=== PATIENT | male | born 1960 | race African-American/Black ===

== ENCOUNTER 2016-12-10 10:35 | Inpatient (IN) | payer OTHER ==
[2016-12-10 11:17] VITALS: BMI 25.1
--- NOTE | 2016-12-10 12:19 | HP ---
CIWA Score - CIWA Score Nausea/Vomitin-Mild Nausea/No Vomiting Muscle Tremors: 4-Moderate,w/Arms Extend Anxiety: 4-Mod. Anxious/Guarded Agitation: 1-Slight > Activity Paroxysmal Sweats: No Perspiration Orientation: 1-Uncertain about Date Tacttile Disturbances: 0-None Auditory Disturbances: 0-None Visual Disturbances: 0-None Headache: 1-Very Mild CIWA-Ar Total Score: 12 Admission ROS BHS - HPI Chief Complaint: I tried to stop but it didn't work, I need help Allergies/Adverse Reactions: Allergies Allergy/AdvReac Type Severity Reaction Status Date / Time bologna AdvReac Intermediate Rash Uncoded 12/10/16 12:10 History of Present Illness: 56 yo gentleman first time here for detox - previous detox years ago - longest time sober 5 years. No seizures. Interested in rehab - drinking is causing him problems with work. Exam Limitations: Clinical Condition - Ebola screening Have you traveled outside of the country in the last 21 days: No Have you had contact with anyone from an Ebola affected area: No Have you been sick,other than usual withdrawal symptoms: No Do you have a fever: No - Review of Systems Constitutional: Loss of Appetite, Malaise, Changes in sleep EENT: reports: No Symptoms Reported Respiratory: reports: No Symptoms reported Cardiac: reports: No Symptoms Reported GI: reports: Poor Appetite, Indigestion : reports: Frequency Musculoskeletal: reports: Back Pain, Muscle Pain, Neck Pain Integumentary: reports: No Symptoms Reported Neuro: reports: No Symptoms reported Endocrine: reports: No Symptoms Reported Hematology: reports: No Symptoms Reported Psychiatric: reports: Judgement Intact, Mood/Affect Appropiate, Anxious Other Systems: Reviewed and Negative Patient History - Patient Medical History Hx Anemia: No Hx Asthma: No Hx Chronic Obstructive Pulmonary Disease (COPD): No Hx Cancer: No Hx Cardiac Disorders: No Hx Congestive Heart Failure: No Hx Hypertension: Yes (on meds) Hx Hypercholesterolemia: No Hx Pacemaker: No HX Cerebrovascular Accident: No Hx Seizures: No Hx Dementia: No Hx Diabetes: No Hx Gastrointestinal Disorders: No Hx Liver Disease: No Hx Genitourinary Disorders: No Hx Sexually Transmitted Disorders: No Hx Renal Disease (ESRD): No Hx Thyroid Disease: No Hx Human Immunodeficiency Virus (HIV): No Hx Hepatitis C: No Hx Depression: No Hx Suicide Attempt: No Hx Bipolar Disorder: No Hx Schizophrenia: No - Patient Surgical History Past Surgical History: No - PPD History Previous Implant?: Yes Documented Results: Positive w/o proof (treated with INH for several months ( had to stop due to elevated LFTs)) PPD to be Administered?: No - Reproductive History Patient is a Female of Child Bearing Age (11 -55 yrs old): No (male) - Smoking Cessation Smoking history: Current every day smoker Have you smoked in the past 12 months: Yes Aproximately how many cigarettes per day: 5 Initiated information on smoking cessation: Yes 'Breaking Loose' booklet given: 12/10/16 (give on floor) - Substance & Tx. History Hx Alcohol Use: Yes Hx Substance Use: Yes Substance Use Type: Alcohol, Cocaine Hx Substance Use Treatment: Yes (detox years ago) - Substances Abused Alcohol Route: Oral Frequency: 3-6 times per week Amount used: 1 pint E&J olivier, 32 oz beer Age of first use: 18 Date of Last Use: 12/10/16 Cocaine Route: Inhalation Frequency: 1-2 times per week Amount used: 1gm Age of first use: 21 Date of Last Use: 12/09/16 Family Disease History - Family Disease History Family Disease History: Heart Disease: Mother (alive - ), Brother (3 - living - HTN-), CA: Mother, Other: Father (alive - on dialysis,hx etoh), Mother, Brother , Sister (2 - living), Son (3 - living healthy), Daughter (4 - living, healthy) Admission Physical Exam BHS - Vital Signs Vital Signs: Vital Signs - 24 hr 12/10/16 11:12 Temperature 98 F Pulse Rate 76 Respiratory 20 Rate Blood Pressure 120/74 - Physical General Appearance: Yes: Nourished, Appropriately Dressed, Moderate Distress, Anxious HEENTM: Yes: Hearing grossly Normal, Normal ENT Inspection, Normocephalic Respiratory: Yes: Normal Breath Sounds, No Respiratory Distress Neck: Yes: No masses,lesions,Nodules, Trachea in good position Breast: Yes: Breast Exam Deferred Cardiology: Yes: Regular Rhythm, Regular Rate Abdominal: Yes: Soft Genitourinary: Yes: Frequency Back: Yes: Normal Inspection Musculoskeletal: Yes: full range of Motion, Gait Steady Extremities: Yes: Normal Inspection, Non-Tender Neurological: Yes: Fully Oriented, Normal Mood/Affect, Normal Response Integumentary: Yes: Normal Color, Warm Lymphatic: Yes: Within Normal Limits - Diagnostic (1) Alcohol dependence with uncomplicated withdrawal Current Visit: Yes Status: Chronic (2) Cocaine abuse Current Visit: Yes Status: Acute (3) Chronic neck and back pain Current Visit: Yes Status: Chronic (4) HTN (hypertension) Current Visit: Yes Status: Chronic Qualifiers: Hypertension type: essential hypertension Qualified Code(s): I10 - Essential (primary) hypertension; I10 - Essential (primary) hypertension; I10 - Essential (primary) hypertension (5) Nicotine dependence Current Visit: Yes Status: Chronic Qualifiers: Nicotine product type: cigarettes Substance use status: uncomplicated Qualified Code(s): F17.210 - Nicotine dependence, cigarettes, uncomplicated; F17.210 - Nicotine dependence, cigarettes, uncomplicated (6) PPD positive, treated Current Visit: Yes Status: Chronic Cleared for Admission [facility] - Detox or Rehab [facility] Level of Care: Medically Managed Detox Regimen/Protocol: Librium S Breath Alcohol Content Breath Alcohol Content: 0 Urine Drug Screen - Results Drug Screen Negative: No Urine Drug Screen Results: CHARLES-Cocaine
[2016-12-10] MEDS ORDERED: MAGNESIUM HYDROX 2400MG/30ML ORAL SUSPENSION 30 ML CUP PO PRN (12:26)
[2016-12-10] MEDS ORDERED: MAG HYDROX/AL HYDROX/SIMETH 30 ML UNIT-DOSE CUP PO PRN (12:26)
[2016-12-10] MEDS ORDERED: LOPERAMIDE HCL 2 MG CAPSULE PO PRN (12:26)
[2016-12-10] MEDS ORDERED: chlordiazePOXIDE HCL 25 MG CAPSULE PO ONE (12:26)
[2016-12-10] MEDS ORDERED: hydrOXYzine PAMOATE 25 MG CAPSULE (FP) PO PRN (12:26)
[2016-12-10] MEDS ORDERED: guaiFENesin/D-METHORPHAN HB 10 ML UNIT-DOSE CUPS PO PRN (12:26)
[2016-12-10] MEDS ORDERED: MENTHOL/PHENOL 1 EACH UD MM PRN (12:26)
[2016-12-10] MEDS ORDERED: MAGNESIUM CITRATE 300 ML BOTTLE PO PRN (12:26)
[2016-12-10] MEDS ORDERED: ACETAMINOPHEN 325 MG TABLET (FP) PO PRN (12:26)
[2016-12-10] MEDS ORDERED: chlordiazePOXIDE HCL 25 MG CAPSULE PO PRN (12:26)
[2016-12-10] MEDS ORDERED: P-EPHED 60MG/TRIPROLIDI 2.5MG TABLET PO PRN (12:26)
[2016-12-10 17:08] LABS: URINE APPEARANCE CLEAR; URINE BILIRUBIN NEGATIVE (NEGATIVE); URINE BLOOD NEGATIVE (NEGATIVE); URINE COLOR STRAW; URINE GLUCOSE (UA) NEGATIVE (NEGATIVE); URINE KETONE NEGATIVE (NEGATIVE); URINE NITRITE NEGATIVE (NEGATIVE); URINE PROTEIN NEGATIVE (NEGATIVE); URINE UROBILINOGEN NEGATIVE mg/dL (0.2-1.0)
[2016-12-10] MEDS: chlordiazePOXIDE HCL 25 MG CAPSULE PO SCH ×2 (17:15→22:10)
[2016-12-10] MEDS: METHYL SALICYLATE/MENTHOL OINT 30 GM TUBE TP SCH ×2 (17:18→22:09)
[2016-12-10 22:02] LABS: URINE LEUK ESTERASE Negative (NEGATIVE)
[2016-12-10] MEDS: THIAMINE HCL 100 MG TABLET (FP) PO SCH (22:10)
[2016-12-11] MEDS: chlordiazePOXIDE HCL 25 MG CAPSULE PO SCH ×4 (05:18→22:07)
--- NOTE | 2016-12-11 08:39 | CONSULT ---
[facility] Psychiatric Consult - Data Date of interview: 12/11/16 Admission source: [facility] Identifying data: Mr Mcdaniel is a 56 years old single male, father of 6 children, unemployed with no source of income, domiciled Substance Abuse History: Reports history of alcohol, cocaine and marijuana use. Refer to addiction's counselor's note for further information Medical History: Significant for HTN, prophylactic treatment for TB with INH. Smokes 5 cigarettes daily Psychiatric History: Denies history of psychiatric treatment. However, reports that he requests to see a psychiatric because he has to cosume alcohol in order to sleep well Physical/Sexual Abuse/Trauma History: Denies history of verbal, physical or sexual as well as DV relationship Additional Comment: Reports history of multiple misdemeanor arrests. claims that he had one felony that was reduced to a misdemeanor after he completed a [facility] program Mental Status Exam - Mental Status Exam Alert and Oriented to: Time, Place, Person Cognitive Function: Fair Patient Appearance: Well Groomed Mood: Hopeful, Euthymic Patient Behavior: Cooperative Speech Pattern: Clear Voice Loudness: Normal Thought Process: Intact, Goal Oriented Thought Disorder: Not Present Hallucinations: Denies Suicidal Ideation: Denies Homicidal Ideation: Denies Insight/Judgement: Poor Sleep: Poorly Appetite: Good Muscle strength/Tone: Normal Gait/Station: Normal Psychiatric Findings - Problem List ([place] 1, 2,3) (1) Substance-induced sleep disorder Current Visit: Yes Status: Acute (2) Alcohol dependence with uncomplicated withdrawal Current Visit: Yes Status: Acute (3) Cocaine dependence Current Visit: Yes Status: Acute (4) Nicotine dependence Current Visit: Yes Status: Chronic Qualifiers: Nicotine product type: cigarettes Substance use status: uncomplicated Qualified Code(s): F17.210 - Nicotine dependence, cigarettes, uncomplicated; F17.210 - Nicotine dependence, cigarettes, uncomplicated (5) Chronic neck and back pain Current Visit: Yes Status: Chronic (6) HTN (hypertension) Current Visit: Yes Status: Chronic Qualifiers: Hypertension type: essential hypertension Qualified Code(s): I10 - Essential (primary) hypertension; I10 - Essential (primary) hypertension; I10 - Essential (primary) hypertension (7) PPD positive, treated Current Visit: Yes Status: Chronic - Initial Treatment Plan Initial Treatment Plan: 1) Start Ambien 10 mg po HS prn for insomnia. Benefits vs Risks of medication discussed with patient and he agreed to try it. 2) Continue inpatient detoxification
[2016-12-11 10:00] LABS: MCH 26.3 pg (25.7-33.7); MCHC 32.1 g/dl (32.0-35.9); MEAN PLT VOLUME 8.4 fl (7.5-11.1); PLATELET COUNT 242 K/MM3 (134-434); WHITE BLOOD COUNT 5.9 K/mm3 (4.0-10.0)
[2016-12-11] MEDS ORDERED: PATIENT'S OWN MEDICATION (NON-FORMULARY) (Lisinopril/Hydrochlorothiazide [Lisinopril-Hctz PO SCH (10:00)
[2016-12-11 10:04] LABS: ALBUMIN 3.5 g/dl (3.4-5.0); ALK PHOS 68 U/L (45-117); ANION GAP 7 (8-16); BILIRUBIN,TOTAL 0.6 mg/dL (0.2-1.0); CALCIUM 8.8 mg/dL (8.5-10.1); CO2 26 mmol/L (21-32); CREATININE 0.8 mg/dL (0.7-1.3); GLUCOSE,RANDOM 101 mg/dL (74-106); SGOT/AST 22 U/L (15-37); SGPT/ALT 45 U/L (12-78); TOT PROT 6.3 g/dl (6.4-8.2)
[2016-12-11] MEDS: PRENATAL VITAMINS W/ FOLIC ACID TABLET (FP) PO SCH (10:12)
[2016-12-11] MEDS: LISINOPRIL 20 MG TABLET (FP) PO SCH (10:12)
[2016-12-11] MEDS: HYDROCHLOROTHIAZIDE 25 MG TABLET (FP) PO SCH (10:12)
[2016-12-11] MEDS: amLODIPine BESYLATE 5 MG TABLET (FP) PO SCH (10:12)
[2016-12-11] MEDS: METHYL SALICYLATE/MENTHOL OINT 30 GM TUBE TP SCH ×2 (10:12→22:07)
[2016-12-11] MEDS: ASPIRIN 81 MG CHEWABLE TABLETS PO SCH (10:12)
[2016-12-11] MEDS ORDERED: ZOLPIDEM TARTRATE 5 MG TABLET PO PRN (10:34)
--- NOTE | 2016-12-11 11:02 | EKG ---
Test Reason : Blood Pressure : / mmHG Vent. Rate : 068 BPM Atrial Rate : 068 BPM P-R Int : 136 ms QRS Dur : 088 ms QT Int : 404 ms P-R-T Axes : 048 -38 -08 degrees QTc Int : 429 ms NORMAL SINUS RHYTHM LEFT AXIS DEVIATION MODERATE VOLTAGE CRITERIA FOR LVH, MAY BE NORMAL VARIANT ABNORMAL ECG NO PREVIOUS ECGS AVAILABLE Confirmed by JT KIM, BETH ([id number]) on 12/11/2016 11:02:31 AM Referred By: Confirmed By:BETH WTAERS MD
--- NOTE | 2016-12-11 16:41 | PN ---
S CIWA - CIWA Score Nausea/Vomitin Muscle Tremors: 3 Anxiety: 3 Agitation: 3 Paroxysmal Sweats: 2 Orientation: 0-Oriented Tacttile Disturbances: 0-None Auditory Disturbances: 0-None Visual Disturbances: 0-None Headache: 2-Mild CIWA-Ar Total Score: 15 S Progress Note (SOAP) Subjective: Sweating, anxious, interrupted sleep, nausea Objective: 12/11/16 16:39 Laboratory Tests 12/10/16 12/11/16 12/11/16 15:30 07:30 07:30 WBC 5.9 RBC 4.59 Hgb 12.1 Hct 37.6 MCV 82.0 MCH 26.3 MCHC 32.1 RDW 14.0 Plt Count 242 MPV 8.4 Sodium 142 Potassium 3.8 Chloride 109 H Carbon Dioxide 26 Anion Gap 7 L BUN 13 Creatinine 0.8 Creat Clearance w eGFR > 60 Random Glucose 101 Calcium 8.8 Total Bilirubin 0.6 AST 22 ALT 45 Alkaline Phosphatase 68 Total Protein 6.3 L Albumin 3.5 Urine Color Straw Urine Appearance Clear Urine pH 5.0 Ur Specific [place] 1.015 Urine Protein Negative Urine Glucose (UA) Negative Urine Ketones Negative Urine Blood Negative Urine Nitrite Negative Urine Bilirubin Negative Urine Urobilinogen Negative Ur Leukocyte Esterase Negative RPR Titer Last Vital Signs Temp Pulse Resp BP Pulse Ox 97.0 F L 84 18 128/74 12/11/16 13:16 12/11/16 13:16 12/11/16 13:16 12/11/16 13:16 Laboratory Tests 12/10/16 12/11/16 12/11/16 15:30 07:30 07:30 WBC 5.9 RBC 4.59 Hgb 12.1 Hct 37.6 MCV 82.0 MCH 26.3 MCHC 32.1 RDW 14.0 Plt Count 242 MPV 8.4 Sodium 142 Potassium 3.8 Chloride 109 H Carbon Dioxide 26 Anion Gap 7 L BUN 13 Creatinine 0.8 Creat Clearance w eGFR > 60 Random Glucose 101 Calcium 8.8 Total Bilirubin 0.6 AST 22 ALT 45 Alkaline Phosphatase 68 Total Protein 6.3 L Albumin 3.5 Urine Color Straw Urine Appearance Clear Urine pH 5.0 Ur Specific [place] 1.015 Urine Protein Negative Urine Glucose (UA) Negative Urine Ketones Negative Urine Blood Negative Urine Nitrite Negative Urine Bilirubin Negative Urine Urobilinogen Negative Ur Leukocyte Esterase Negative RPR Titer 12/11/16 07:30 WBC RBC Hgb Hct MCV MCH MCHC RDW Plt Count MPV Sodium Potassium Chloride Carbon Dioxide Anion Gap BUN Creatinine Creat Clearance w eGFR Random Glucose Calcium Total Bilirubin AST ALT Alkaline Phosphatase Total Protein Albumin Urine Color Urine Appearance Urine pH Ur Specific [place] Urine Protein Urine Glucose (UA) Urine Ketones Urine Blood Urine Nitrite Urine Bilirubin Urine Urobilinogen Ur Leukocyte Esterase RPR Titer Nonreactive Labs noted Assessment: 12/11/16 16:40 Withdrawal symptoms Plan: Continue detox
[2016-12-11] MEDS: diphenhydrAMINE HCL 50 MG CAPSULE PO PRN (22:06)
[2016-12-11] MEDS: THIAMINE HCL 100 MG TABLET (FP) PO SCH (22:06)
[2016-12-12] MEDS: chlordiazePOXIDE HCL 25 MG CAPSULE PO SCH ×2 (05:58→10:06)
[2016-12-12] MEDS: ASPIRIN 81 MG CHEWABLE TABLETS PO SCH (10:06)
[2016-12-12] MEDS: amLODIPine BESYLATE 5 MG TABLET (FP) PO SCH (10:06)
[2016-12-12] MEDS: PRENATAL VITAMINS W/ FOLIC ACID TABLET (FP) PO SCH (10:06)
[2016-12-12] MEDS: LISINOPRIL 20 MG TABLET (FP) PO SCH (10:06)
[2016-12-12] MEDS: HYDROCHLOROTHIAZIDE 25 MG TABLET (FP) PO SCH (10:06)
[2016-12-12] MEDS: METHYL SALICYLATE/MENTHOL OINT 30 GM TUBE TP SCH ×2 (10:07→22:22)
--- NOTE | 2016-12-12 12:09 | PN ---
[facility] CIWA - CIWA Score Nausea/Vomitin-No Nausea/No Vomiting Muscle Tremors: 2 Anxiety: 5 Agitation: 4-Moderately Restless Paroxysmal Sweats: 3 Orientation: 0-Oriented Tacttile Disturbances: 2-Mild Itch/Numbness/Burn Auditory Disturbances: 0-None Visual Disturbances: 0-None Headache: 0-None Present CIWA-Ar Total Score: 16 BHS Progress Note (SOAP) Subjective: Sweating, Anxious, Interrupted sleep. Objective: PT. A & O X 3, OBSERVED AMBULATING ON UNIT. NO ACUTE DISTRESS. 12/12/16 12:07 Vital Signs Temperature 97.5 F L 12/12/16 09:39 Pulse Rate 88 12/12/16 09:39 Respiratory Rate 20 12/12/16 09:39 Blood Pressure 120/83 12/12/16 09:39 O2 Sat by Pulse Oximetry (%) Laboratory Tests 12/10/16 12/11/16 12/11/16 15:30 07:30 07:30 WBC 5.9 RBC 4.59 Hgb 12.1 Hct 37.6 MCV 82.0 MCH 26.3 MCHC 32.1 RDW 14.0 Plt Count 242 MPV 8.4 Sodium 142 Potassium 3.8 Chloride 109 H Carbon Dioxide 26 Anion Gap 7 L BUN 13 Creatinine 0.8 Creat Clearance w eGFR > 60 Random Glucose 101 Calcium 8.8 Total Bilirubin 0.6 AST 22 ALT 45 Alkaline Phosphatase 68 Total Protein 6.3 L Albumin 3.5 Urine Color Straw Urine Appearance Clear Urine pH 5.0 Ur Specific [place] 1.015 Urine Protein Negative Urine Glucose (UA) Negative Urine Ketones Negative Urine Blood Negative Urine Nitrite Negative Urine Bilirubin Negative Urine Urobilinogen Negative Ur Leukocyte Esterase Negative RPR Titer 12/11/16 07:30 WBC RBC Hgb Hct MCV MCH MCHC RDW Plt Count MPV Sodium Potassium Chloride Carbon Dioxide Anion Gap BUN Creatinine Creat Clearance w eGFR Random Glucose Calcium Total Bilirubin AST ALT Alkaline Phosphatase Total Protein Albumin Urine Color Urine Appearance Urine pH Ur Specific [place] Urine Protein Urine Glucose (UA) Urine Ketones Urine Blood Urine Nitrite Urine Bilirubin Urine Urobilinogen Ur Leukocyte Esterase RPR Titer Nonreactive LABS NOTED. Assessment: 12/12/16 12:08 WITHDRAWAL SYMPTOMS. Plan: CONTINUE DETOX.
[2016-12-12] MEDS: chlordiazePOXIDE 5 MG CAPSULE PO SCH ×2 (17:30→22:20)
[2016-12-12] MEDS: THIAMINE HCL 100 MG TABLET (FP) PO SCH (22:20)
[2016-12-12] MEDS: diphenhydrAMINE HCL 50 MG CAPSULE PO PRN (22:20)
[2016-12-13] MEDS: chlordiazePOXIDE 5 MG CAPSULE PO SCH ×2 (06:20→10:14)
[2016-12-13 09:40] VITALS: BP 117/84; PULSE 108; TEMP 96.2
[2016-12-13] MEDS: LISINOPRIL 20 MG TABLET (FP) PO SCH (10:14)
[2016-12-13] MEDS: PRENATAL VITAMINS W/ FOLIC ACID TABLET (FP) PO SCH (10:14)
[2016-12-13] MEDS: amLODIPine BESYLATE 5 MG TABLET (FP) PO SCH (10:14)
[2016-12-13] MEDS: ASPIRIN 81 MG CHEWABLE TABLETS PO SCH (10:14)
[2016-12-13] MEDS: METHYL SALICYLATE/MENTHOL OINT 30 GM TUBE TP SCH (10:14)
[2016-12-13] MEDS: HYDROCHLOROTHIAZIDE 25 MG TABLET (FP) PO SCH (10:15)
--- NOTE | 2016-12-13 16:15 | DS ---
[facility] Detox Discharge Summary Admission Date: 12/10/16 Discharge Date: 12/13/16 - History Present History: Alcohol Dependence, Cocaine Dependence Additional Comments: PATIENT REQUESTING TO GO TO [facility] FOR AFTERCARE. PATIENT WAS DISCHARGED FROM DETOX UNIT IN STABLE MEDICAL CONDITION. Pertinent Past History: HTN, Nicotine Dependence, History of Positive PPD (Treated), Chronic Neck and Back Pain. - Physical Exam Results Vital Signs: Vital Signs Temperature 96.2 F L 12/13/16 09:40 Pulse Rate 108 H 12/13/16 09:40 Respiratory Rate 18 12/13/16 09:40 Blood Pressure 117/84 12/13/16 09:40 O2 Sat by Pulse Oximetry (%) Pertinent Admission Physical Exam Findings: WITHDRAWAL SYMPTOMS. Laboratory Tests 12/10/16 12/11/16 12/11/16 15:30 07:30 07:30 WBC 5.9 RBC 4.59 Hgb 12.1 Hct 37.6 MCV 82.0 MCH 26.3 MCHC 32.1 RDW 14.0 Plt Count 242 MPV 8.4 Sodium 142 Potassium 3.8 Chloride 109 H Carbon Dioxide 26 Anion Gap 7 L BUN 13 Creatinine 0.8 Creat Clearance w eGFR > 60 Random Glucose 101 Calcium 8.8 Total Bilirubin 0.6 AST 22 ALT 45 Alkaline Phosphatase 68 Total Protein 6.3 L Albumin 3.5 Urine Color Straw Urine Appearance Clear Urine pH 5.0 Ur Specific [place] 1.015 Urine Protein Negative Urine Glucose (UA) Negative Urine Ketones Negative Urine Blood Negative Urine Nitrite Negative Urine Bilirubin Negative Urine Urobilinogen Negative Ur Leukocyte Esterase Negative RPR Titer 12/11/16 07:30 WBC RBC Hgb Hct MCV MCH MCHC RDW Plt Count MPV Sodium Potassium Chloride Carbon Dioxide Anion Gap BUN Creatinine Creat Clearance w eGFR Random Glucose Calcium Total Bilirubin AST ALT Alkaline Phosphatase Total Protein Albumin Urine Color Urine Appearance Urine pH Ur Specific [place] Urine Protein Urine Glucose (UA) Urine Ketones Urine Blood Urine Nitrite Urine Bilirubin Urine Urobilinogen Ur Leukocyte Esterase RPR Titer Nonreactive LABS NOTED. - Treatment Hospital Course: Detox Protocol Followed, Detoxed Safely, Responded well, Discharged Condition Good, Rehab Referral Accepted Patient has Accepted a Rehab Referral to: [facility]. - Medication Discharge Medications: Ambulatory Orders Amlodipine Besylate [Norvasc -] 5 mg PO DAILY 12/10/16 Aspirin [ASA -] 81 mg PO DAILY 12/10/16 Lisinopril/Hydrochlorothiazide [Lisinopril-Hctz 20-25 mg Tab] 1 each PO DAILY - Diagnosis (1) Alcohol dependence with uncomplicated withdrawal Current Visit: Yes Status: Acute (2) Cocaine dependence Current Visit: Yes Status: Acute Qualifiers: Substance use status: uncomplicated Qualified Code(s): F14.20 - Cocaine dependence, uncomplicated; F14.20 - Cocaine dependence, uncomplicated; F14.20 - Cocaine dependence, uncomplicated (3) Substance-induced sleep disorder Current Visit: Yes Status: Acute (4) Chronic neck and back pain Current Visit: Yes Status: Chronic (5) HTN (hypertension) Current Visit: Yes Status: Chronic Qualifiers: Hypertension type: essential hypertension Qualified Code(s): I10 - Essential (primary) hypertension; I10 - Essential (primary) hypertension; I10 - Essential (primary) hypertension (6) Nicotine dependence Current Visit: Yes Status: Chronic Qualifiers: Nicotine product type: cigarettes Substance use status: uncomplicated Qualified Code(s): F17.210 - Nicotine dependence, cigarettes, uncomplicated; F17.210 - Nicotine dependence, cigarettes, uncomplicated (7) PPD positive, treated Current Visit: Yes Status: Chronic (8) Cocaine abuse Current Visit: Yes Status: Acute - AMA Did Patient Leave Against Medical Advice: No
[2016-12-13] MEDS ORDERED: chlordiazePOXIDE HCL 10 MG CAPSULE PO SCH (17:00)
== END 2016-12-13 17:19 | disposition left against medical advice (07) | DRG 770 ==
LOC: YASAS 10:35 → Y3N 13:58
PROVIDERS: ADMIT Internal Medicine; ATTEND Internal Medicine
PROC: HZ2ZZZZ Detoxification Services for Substance Abuse Treatment (ICD-10-PCS; principal; 2016-12-10)
DX: F10.230 Alcohol dependence with withdrawal, uncomplicated (principal); F14.20 Cocaine dependence, uncomplicated; F17.210 Nicotine dependence, cigarettes, uncomplicated; F19.282 Other psychoactive substance dependence with psychoactive substance-induced sleep disorder; I10 Essential (primary) hypertension; M54.5 Low back pain; M54.2 Cervicalgia; G89.29 Other chronic pain; R76.11 Nonspecific reaction to tuberculin skin test without active tuberculosis; Z86.11 Personal history of tuberculosis; Z91.018 Allergy to other foods
CPT/HCPCS: 36415; 71020-TC; 80053; 81003; 85027; 86593; 93005; 93010

== ENCOUNTER 2017-03-10 11:36 | Inpatient (IN) | payer OTHER ==
[2017-03-10 16:00] VITALS: BMI 25.1
--- NOTE | 2017-03-10 19:33 | HP ---
CIWA Score - CIWA Score Nausea/Vomitin Muscle Tremors: 3 Anxiety: 4-Mod. Anxious/Guarded Agitation: 4-Moderately Restless Paroxysmal Sweats: 2 Orientation: 0-Oriented Tacttile Disturbances: 0-None Auditory Disturbances: 0-None Visual Disturbances: 0-None Headache: 0-None Present CIWA-Ar Total Score: 16 Admission ROS BHS - HPI Chief Complaint: Alcohol withdrawal symptoms Allergies/Adverse Reactions: Allergies Allergy/AdvReac Type Severity Reaction Status Date / Time No Known Drug Allergies Allergy Verified 03/10/17 20:09 bologna Allergy Intermediate Vomiting Uncoded 03/10/17 18:15 Exam Limitations: No Limitations - Ebola screening Have you traveled outside of the country in the last 21 days: No Have you had contact with anyone from an Ebola affected area: No Have you been sick,other than usual withdrawal symptoms: No Do you have a fever: No - Review of Systems Constitutional: Chills, Night Sweats, Changes in sleep EENT: reports: Blurred Vision, Nose Congestion Respiratory: reports: No Symptoms reported Cardiac: reports: No Symptoms Reported GI: reports: Nausea, Poor Appetite, Poor Fluid Intake, Abdominal cramping : reports: No Symptoms Reported Musculoskeletal: reports: Back Pain, Muscle Pain, Muscle Weakness, Neck Pain Integumentary: reports: Flushing Neuro: reports: Headache, Tingling, Tremors Endocrine: reports: No Symptoms Reported Hematology: reports: No Symptoms Reported Psychiatric: reports: Orientated x3, Agitated, Anxious Other Systems: Reviewed and Negative Patient History - Patient Medical History Hx Anemia: No Hx Asthma: No Hx Chronic Obstructive Pulmonary Disease (COPD): No Hx Cancer: No Hx Cardiac Disorders: No Hx Congestive Heart Failure: No Hx Hypertension: Yes (on meds) Hx Hypercholesterolemia: No Hx Pacemaker: No HX Cerebrovascular Accident: No Hx Seizures: No Hx Dementia: No Hx Diabetes: No Hx Gastrointestinal Disorders: No Hx Liver Disease: No Hx Genitourinary Disorders: No Hx Sexually Transmitted Disorders: No Hx Renal Disease (ESRD): No Hx Thyroid Disease: No Hx Human Immunodeficiency Virus (HIV): No Hx Hepatitis C: No Hx Depression: No Hx Suicide Attempt: No Hx Bipolar Disorder: No Hx Schizophrenia: No - Patient Surgical History Past Surgical History: No - PPD History Previous Implant?: Yes (PPD POSITIVE) Documented Results: Positive w/proof PPD to be Administered?: No - Reproductive History Patient is a Female of Child Bearing Age (11 -55 yrs old): No (MALE) - Smoking Cessation Smoking history: Current every day smoker Have you smoked in the past 12 months: Yes Aproximately how many cigarettes per day: 5 Hx Chewing Tobacco Use: No Initiated information on smoking cessation: Yes 'Breaking Loose' booklet given: 03/10/17 - Substance & Tx. History Hx Alcohol Use: Yes Hx Substance Use: Yes Substance Use Type: Cocaine Hx Substance Use Treatment: Yes ([facility]) - Substances Abused Alcohol Route: Oral Frequency: 3-6 times per week Amount used: liquor- 1 pint, beer- 2 six packs Age of first use: 30 Date of Last Use: 03/09/17 Cocaine Route: Smoking Frequency: Daily Amount used: 2 bags Age of first use: 30 Date of Last Use: 03/09/17 Family Disease History - Family Disease History Family Disease History: Heart Disease: Mother (alive - ), Brother (3 - living - HTN-), CA: Mother, Other: Father (alive - on dialysis,hx etoh), Mother, Brother , Sister (2 - living), Son (3 - living healthy), Daughter (4 - living, healthy) Admission Physical Exam BHS - Vital Signs Vital Signs: Vital Signs - 24 hr 03/10/17 15:58 Temperature 97.8 F Pulse Rate 72 Respiratory 20 Rate Blood Pressure 124/81 - Physical General Appearance: Yes: Moderate Distress, Irritable, Sweating, Anxious HEENTM: Yes: EOMI, Normal ENT Inspection, RUEL Respiratory: Yes: Lungs Clear, Normal Breath Sounds, No Respiratory Distress Neck: Yes: Supple Breast: Yes: Breast Exam Deferred Cardiology: Yes: Regular Rhythm, Regular Rate, S1, S2 Abdominal: Yes: Soft, Pulsatile Mass Genitourinary: Yes: Within Normal Limits Musculoskeletal: Yes: Muscle Pain, Muscle weakness Extremities: Yes: Tremors Neurological: Yes: Within Normal Limits, Alert, Normal Mood/Affect Integumentary: Yes: Dry Lymphatic: Yes: Within Normal Limits - Diagnostic (1) Alcohol dependence with uncomplicated withdrawal Current Visit: Yes Status: Chronic (2) Cocaine dependence Current Visit: Yes Status: Chronic Qualifiers: Substance use status: uncomplicated Qualified Code(s): F14.20 - Cocaine dependence, uncomplicated (3) Chronic neck and back pain Current Visit: Yes Status: Chronic (4) HTN (hypertension) Current Visit: Yes Status: Chronic Qualifiers: Hypertension type: essential hypertension Qualified Code(s): I10 - Essential (primary) hypertension (5) Nicotine dependence Current Visit: Yes Status: Chronic Qualifiers: Nicotine product type: cigarettes Substance use status: uncomplicated Qualified Code(s): F17.210 - Nicotine dependence, cigarettes, uncomplicated (6) PPD positive, treated Current Visit: Yes Status: Chronic BHS Breath Alcohol Content Breath Alcohol Content: 0 Urine Drug Screen - Results Drug Screen Negative: No Urine Drug Screen Results: CHARLES-Cocaine
[2017-03-10] MEDS ORDERED: chlordiazePOXIDE HCL 25 MG CAPSULE PO PRN (19:59)
[2017-03-10] MEDS ORDERED: P-EPHED 60MG/TRIPROLIDI 2.5MG TABLET PO PRN (19:59)
[2017-03-10] MEDS ORDERED: LOPERAMIDE HCL 2 MG CAPSULE PO PRN (19:59)
[2017-03-10] MEDS ORDERED: MENTHOL/PHENOL 1 EACH UD MM PRN (19:59)
[2017-03-10] MEDS ORDERED: IBUPROFEN 400 MG TABLET (FP) PO PRN (19:59)
[2017-03-10] MEDS ORDERED: MAGNESIUM HYDROX 2400MG/30ML ORAL SUSPENSION 30 ML CUP PO PRN (19:59)
[2017-03-10] MEDS ORDERED: MAG HYDROX/AL HYDROX/SIMETH 30 ML UNIT-DOSE CUP PO PRN (19:59)
[2017-03-10] MEDS ORDERED: guaiFENesin/D-METHORPHAN HB 10 ML UNIT-DOSE CUPS PO PRN (19:59)
[2017-03-10] MEDS ORDERED: NICOTINE POLACRILEX 2 MG GUM BUC PRN (19:59)
[2017-03-10] MEDS ORDERED: MAGNESIUM CITRATE 300 ML BOTTLE PO PRN (19:59)
[2017-03-10] MEDS ORDERED: ACETAMINOPHEN 325 MG TABLET (FP) PO PRN (19:59)
[2017-03-10] MEDS: THIAMINE HCL 100 MG TABLET (FP) PO SCH (21:18)
[2017-03-10] MEDS: chlordiazePOXIDE HCL 25 MG CAPSULE PO SCH (22:40)
[2017-03-10 23:42] LABS: URINE APPEARANCE CLEAR; URINE BILIRUBIN NEGATIVE (NEGATIVE); URINE BLOOD NEGATIVE (NEGATIVE); URINE COLOR STRAW; URINE GLUCOSE (UA) NEGATIVE (NEGATIVE); URINE KETONE NEGATIVE (NEGATIVE); URINE LEUK ESTERASE NEGATIVE (NEGATIVE); URINE NITRITE NEGATIVE (NEGATIVE); URINE PROTEIN NEGATIVE (NEGATIVE); URINE UROBILINOGEN NEGATIVE mg/dL (0.2-1.0)
[2017-03-11] MEDS: chlordiazePOXIDE HCL 25 MG CAPSULE PO SCH ×4 (06:06→22:51)
[2017-03-11] MEDS ORDERED: PATIENT'S OWN MEDICATION (NON-FORMULARY) (Lisinopril/Hydrochlorothiazide [Lisinopril-Hctz PO SCH (10:00)
[2017-03-11] MEDS: PRENATAL VITAMINS W/ FOLIC ACID TABLET (FP) PO SCH (10:19)
[2017-03-11] MEDS: LISINOPRIL 20 MG TABLET (FP) PO SCH (10:19)
[2017-03-11] MEDS: ASPIRIN 81 MG CHEWABLE TABLETS PO SCH (10:19)
[2017-03-11] MEDS: amLODIPine BESYLATE 5 MG TABLET (FP) PO SCH (10:19)
[2017-03-11] MEDS: HYDROCHLOROTHIAZIDE 25 MG TABLET (FP) PO SCH (10:19)
[2017-03-11] MEDS: NICOTINE 14 MG/24 HOURS TOPICAL PATCH TD SCH (10:20)
[2017-03-11 12:20] LABS: HEMATOCRIT 42.5 % (35.4-49); HEMOGLOBIN 13.5 GM/dL (11.7-16.9); MCHC 31.7 g/dl (32.0-35.9); MEAN PLT VOLUME 8.8 fl (7.5-11.1); PLATELET COUNT 275 K/MM3 (134-434); RBC 5.18 M/mm3 (4.00-5.60); WHITE BLOOD COUNT 7.4 K/mm3 (4.0-10.0)
[2017-03-11 12:26] LABS: ANION GAP 6 (8-16); BILIRUBIN,TOTAL 0.5 mg/dL (0.2-1.0); BLOOD UREA NITROGEN 16 mg/dL (7-18); CALCIUM 8.9 mg/dL (8.5-10.1); CHLORIDE 107 mmol/L (98-107); CO2 28 mmol/L (21-32); GLUCOSE,RANDOM 121 mg/dL (74-106); SGOT/AST 15 U/L (15-37); SGPT/ALT 43 U/L (12-78); SODIUM 141 mmol/L (136-145); TOT PROT 7.5 g/dl (6.4-8.2)
[2017-03-11 12:27] LABS: ALK PHOS 76 U/L (45-117)
[2017-03-11] MEDS: METHYL SALICYLATE/MENTHOL OINT 30 GM TUBE TP SCH (14:11)
--- NOTE | 2017-03-11 15:42 | PN ---
S CIWA - CIWA Score Nausea/Vomitin-No Nausea/No Vomiting Muscle Tremors: 3 Anxiety: 4-Mod. Anxious/Guarded Agitation: 3 Paroxysmal Sweats: 3 Orientation: 0-Oriented Tacttile Disturbances: 3-Moderate Itch/Numb/Burn Auditory Disturbances: 1-Very Mild Visual Disturbances: 0-None Headache: 0-None Present CIWA-Ar Total Score: 17 BHS Progress Note (SOAP) Subjective: Sweating, Body Aches, Anxious, Interrupted Sleep. Objective: PT. A & O X 3, OBSERVED AMBULATING ON UNIT. NO ACUTE DISTRESS. 03/11/17 15:41 Vital Signs Temperature 97.3 F L 03/11/17 13:23 Pulse Rate 86 03/11/17 13:23 Respiratory Rate 18 03/11/17 13:23 Blood Pressure 123/86 03/11/17 13:23 O2 Sat by Pulse Oximetry (%) Laboratory Tests 03/10/17 03/11/17 03/11/17 Unknown 09:25 09:25 WBC 7.4 RBC 5.18 Hgb 13.5 D Hct 42.5 MCV 82.0 MCH 26.0 MCHC 31.7 L RDW 14.0 Plt Count 275 MPV 8.8 Sodium 141 Potassium 4.0 Chloride 107 Carbon Dioxide 28 Anion Gap 6 L BUN 16 D Creatinine 1.0 D Creat Clearance w eGFR > 60 Random Glucose 121 H Calcium 8.9 Total Bilirubin 0.5 AST 15 D ALT 43 Alkaline Phosphatase 76 Total Protein 7.5 Albumin 4.0 Urine Color Straw Urine Appearance Clear Urine pH 5.0 Ur Specific [place] 1.012 Urine Protein Negative Urine Glucose (UA) Negative Urine Ketones Negative Urine Blood Negative Urine Nitrite Negative Urine Bilirubin Negative Urine Urobilinogen Negative Ur Leukocyte Esterase Negative RPR Titer 03/11/17 09:25 WBC RBC Hgb Hct MCV MCH MCHC RDW Plt Count MPV Sodium Potassium Chloride Carbon Dioxide Anion Gap BUN Creatinine Creat Clearance w eGFR Random Glucose Calcium Total Bilirubin AST ALT Alkaline Phosphatase Total Protein Albumin Urine Color Urine Appearance Urine pH Ur Specific [place] Urine Protein Urine Glucose (UA) Urine Ketones Urine Blood Urine Nitrite Urine Bilirubin Urine Urobilinogen Ur Leukocyte Esterase RPR Titer Nonreactive LABS NOTED. Assessment: 03/11/17 15:42 WITHDRAWAL SYMPTOMS. Plan: CONTINUE DETOX. INCREASE DAILY PO FLUID INTAKE.
[2017-03-11] MEDS: THIAMINE HCL 100 MG TABLET (FP) PO SCH (22:51)
[2017-03-12] MEDS: chlordiazePOXIDE HCL 25 MG CAPSULE PO SCH ×3 (05:33→17:36)
[2017-03-12] MEDS: LISINOPRIL 20 MG TABLET (FP) PO SCH (10:23)
[2017-03-12] MEDS: amLODIPine BESYLATE 5 MG TABLET (FP) PO SCH (10:23)
[2017-03-12] MEDS: ASPIRIN 81 MG CHEWABLE TABLETS PO SCH (10:23)
[2017-03-12] MEDS: HYDROCHLOROTHIAZIDE 25 MG TABLET (FP) PO SCH (10:23)
[2017-03-12] MEDS: PRENATAL VITAMINS W/ FOLIC ACID TABLET (FP) PO SCH (10:23)
[2017-03-12] MEDS: METHYL SALICYLATE/MENTHOL OINT 30 GM TUBE TP SCH (10:23)
[2017-03-12] MEDS: NICOTINE 14 MG/24 HOURS TOPICAL PATCH TD SCH (10:24)
--- NOTE | 2017-03-12 14:54 | PN ---
S CIWA - CIWA Score Nausea/Vomitin Muscle Tremors: 3 Anxiety: 4-Mod. Anxious/Guarded Agitation: 4-Moderately Restless Paroxysmal Sweats: 3 Orientation: 0-Oriented Tacttile Disturbances: 1-Very Mild Itch/Numbness Auditory Disturbances: 0-None Visual Disturbances: 0-None Headache: 0-None Present CIWA-Ar Total Score: 18 BHS Progress Note (SOAP) Subjective: Sweating, interrupted sleep, anxious Objective: 03/12/17 14:52 Last Vital Signs Temp Pulse Resp BP Pulse Ox 97.9 F 88 20 131/88 03/12/17 13:14 03/12/17 13:14 03/12/17 13:14 03/12/17 13:14 Laboratory Tests 03/10/17 03/11/17 03/11/17 Unknown 09:25 09:25 WBC 7.4 RBC 5.18 Hgb 13.5 D Hct 42.5 MCV 82.0 MCH 26.0 MCHC 31.7 L RDW 14.0 Plt Count 275 MPV 8.8 Sodium 141 Potassium 4.0 Chloride 107 Carbon Dioxide 28 Anion Gap 6 L BUN 16 D Creatinine 1.0 D Creat Clearance w eGFR > 60 Random Glucose 121 H Calcium 8.9 Total Bilirubin 0.5 AST 15 D ALT 43 Alkaline Phosphatase 76 Total Protein 7.5 Albumin 4.0 Urine Color Straw Urine Appearance Clear Urine pH 5.0 Ur Specific [place] 1.012 Urine Protein Negative Urine Glucose (UA) Negative Urine Ketones Negative Urine Blood Negative Urine Nitrite Negative Urine Bilirubin Negative Urine Urobilinogen Negative Ur Leukocyte Esterase Negative RPR Titer 03/11/17 09:25 WBC RBC Hgb Hct MCV MCH MCHC RDW Plt Count MPV Sodium Potassium Chloride Carbon Dioxide Anion Gap BUN Creatinine Creat Clearance w eGFR Random Glucose Calcium Total Bilirubin AST ALT Alkaline Phosphatase Total Protein Albumin Urine Color Urine Appearance Urine pH Ur Specific [place] Urine Protein Urine Glucose (UA) Urine Ketones Urine Blood Urine Nitrite Urine Bilirubin Urine Urobilinogen Ur Leukocyte Esterase RPR Titer Nonreactive Labs noted Assessment: 03/12/17 14:53 Withdrawal symptoms Plan: Continue detox
[2017-03-12] MEDS: THIAMINE HCL 100 MG TABLET (FP) PO SCH (22:30)
[2017-03-12] MEDS: chlordiazePOXIDE 5 MG CAPSULE PO SCH (22:30)
[2017-03-13] MEDS: chlordiazePOXIDE 5 MG CAPSULE PO SCH ×3 (05:04→17:48)
[2017-03-13] MEDS: ASPIRIN 81 MG CHEWABLE TABLETS PO SCH (10:41)
[2017-03-13] MEDS: PRENATAL VITAMINS W/ FOLIC ACID TABLET (FP) PO SCH (10:41)
[2017-03-13] MEDS: NICOTINE 14 MG/24 HOURS TOPICAL PATCH TD SCH (10:41)
[2017-03-13] MEDS: METHYL SALICYLATE/MENTHOL OINT 30 GM TUBE TP SCH (10:42)
[2017-03-13] MEDS: amLODIPine BESYLATE 5 MG TABLET (FP) PO SCH (10:42)
[2017-03-13] MEDS: HYDROCHLOROTHIAZIDE 25 MG TABLET (FP) PO SCH (10:42)
[2017-03-13] MEDS: LISINOPRIL 20 MG TABLET (FP) PO SCH (10:42)
--- NOTE | 2017-03-13 12:19 | PN ---
BHS Progress Note (SOAP) Subjective: Interrupted Sleep, Anxious, Sweating. Objective: PT. A & O X 3, OBSERVED AMBULATING ON UNIT. NO ACUTE DISTRESS. 03/13/17 12:18 Vital Signs Temperature 97.7 F 03/13/17 09:31 Pulse Rate 81 03/13/17 09:31 Respiratory Rate 18 03/13/17 09:31 Blood Pressure 121/85 03/13/17 09:31 O2 Sat by Pulse Oximetry (%) Laboratory Tests 03/10/17 03/11/17 03/11/17 Unknown 09:25 09:25 WBC 7.4 RBC 5.18 Hgb 13.5 D Hct 42.5 MCV 82.0 MCH 26.0 MCHC 31.7 L RDW 14.0 Plt Count 275 MPV 8.8 Sodium 141 Potassium 4.0 Chloride 107 Carbon Dioxide 28 Anion Gap 6 L BUN 16 D Creatinine 1.0 D Creat Clearance w eGFR > 60 Random Glucose 121 H Calcium 8.9 Total Bilirubin 0.5 AST 15 D ALT 43 Alkaline Phosphatase 76 Total Protein 7.5 Albumin 4.0 Urine Color Straw Urine Appearance Clear Urine pH 5.0 Ur Specific [place] 1.012 Urine Protein Negative Urine Glucose (UA) Negative Urine Ketones Negative Urine Blood Negative Urine Nitrite Negative Urine Bilirubin Negative Urine Urobilinogen Negative Ur Leukocyte Esterase Negative RPR Titer 03/11/17 09:25 WBC RBC Hgb Hct MCV MCH MCHC RDW Plt Count MPV Sodium Potassium Chloride Carbon Dioxide Anion Gap BUN Creatinine Creat Clearance w eGFR Random Glucose Calcium Total Bilirubin AST ALT Alkaline Phosphatase Total Protein Albumin Urine Color Urine Appearance Urine pH Ur Specific [place] Urine Protein Urine Glucose (UA) Urine Ketones Urine Blood Urine Nitrite Urine Bilirubin Urine Urobilinogen Ur Leukocyte Esterase RPR Titer Nonreactive LABS NOTED. Assessment: 03/13/17 12:18 WITHDRAWAL SYMPTOMS. Plan: CONTINUE DETOX. INCREASE DAILY PO FLUID INTAKE.
--- NOTE | 2017-03-13 21:56 | EKG ---
Test Reason : Blood Pressure : / mmHG Vent. Rate : 063 BPM Atrial Rate : 063 BPM P-R Int : 130 ms QRS Dur : 088 ms QT Int : 404 ms P-R-T Axes : 057 -20 028 degrees QTc Int : 413 ms NORMAL SINUS RHYTHM NORMAL ECG WHEN COMPARED WITH ECG OF 10-DEC-2016 15:55, NO SIGNIFICANT CHANGE WAS FOUND Confirmed by NIRAJ OLVERA MD ([id number]) on 03/13/2017 9:56:17 PM Referred By: Confirmed By:NIRAJ OLVERA MD
[2017-03-13] MEDS: THIAMINE HCL 100 MG TABLET (FP) PO SCH (22:32)
[2017-03-13] MEDS: chlordiazePOXIDE HCL 10 MG CAPSULE PO SCH (22:33)
[2017-03-14] MEDS: chlordiazePOXIDE HCL 10 MG CAPSULE PO SCH (06:37)
[2017-03-14 09:22] VITALS: BP 136/94; PULSE 104; TEMP 97.6
[2017-03-14] MEDS: HYDROCHLOROTHIAZIDE 25 MG TABLET (FP) PO SCH (10:46)
[2017-03-14] MEDS: NICOTINE 14 MG/24 HOURS TOPICAL PATCH TD SCH (10:46)
[2017-03-14] MEDS: amLODIPine BESYLATE 5 MG TABLET (FP) PO SCH (10:46)
[2017-03-14] MEDS: METHYL SALICYLATE/MENTHOL OINT 30 GM TUBE TP SCH (10:46)
[2017-03-14] MEDS: LISINOPRIL 20 MG TABLET (FP) PO SCH (10:46)
[2017-03-14] MEDS: ASPIRIN 81 MG CHEWABLE TABLETS PO SCH (10:46)
[2017-03-14] MEDS: PRENATAL VITAMINS W/ FOLIC ACID TABLET (FP) PO SCH (10:46)
--- NOTE | 2017-03-14 13:50 | DS ---
[facility] Detox Discharge Summary Admission Date: 03/10/17 Discharge Date: 03/14/17 - History Present History: Alcohol Dependence, Cocaine Dependence Additional Comments: PATIENT GO[facility] ([facility] FOR AFTERCARE. PATIENT WAS DISCHARGED FROM DETOX UNIT TO BE TAKEN TO REHAB UNIT IN STABLE MEDICAL CONDITION. Pertinent Past History: HTN, Chronic Neck and Back Pain, History of Positive PPD (Treated), Nicotine Dependence. - Physical Exam Results Vital Signs: Vital Signs Temperature 97.6 F 03/14/17 09:21 Pulse Rate 104 H 03/14/17 09:21 Respiratory Rate 18 03/14/17 09:21 Blood Pressure 136/94 03/14/17 09:21 O2 Sat by Pulse Oximetry (%) Pertinent Admission Physical Exam Findings: WITHDRAWAL SYMPTOMS. Laboratory Tests 03/10/17 03/11/17 03/11/17 Unknown 09:25 09:25 WBC 7.4 RBC 5.18 Hgb 13.5 D Hct 42.5 MCV 82.0 MCH 26.0 MCHC 31.7 L RDW 14.0 Plt Count 275 MPV 8.8 Sodium 141 Potassium 4.0 Chloride 107 Carbon Dioxide 28 Anion Gap 6 L BUN 16 D Creatinine 1.0 D Creat Clearance w eGFR > 60 Random Glucose 121 H Calcium 8.9 Total Bilirubin 0.5 AST 15 D ALT 43 Alkaline Phosphatase 76 Total Protein 7.5 Albumin 4.0 Urine Color Straw Urine Appearance Clear Urine pH 5.0 Ur Specific [place] 1.012 Urine Protein Negative Urine Glucose (UA) Negative Urine Ketones Negative Urine Blood Negative Urine Nitrite Negative Urine Bilirubin Negative Urine Urobilinogen Negative Ur Leukocyte Esterase Negative RPR Titer 03/11/17 09:25 WBC RBC Hgb Hct MCV MCH MCHC RDW Plt Count MPV Sodium Potassium Chloride Carbon Dioxide Anion Gap BUN Creatinine Creat Clearance w eGFR Random Glucose Calcium Total Bilirubin AST ALT Alkaline Phosphatase Total Protein Albumin Urine Color Urine Appearance Urine pH Ur Specific [place] Urine Protein Urine Glucose (UA) Urine Ketones Urine Blood Urine Nitrite Urine Bilirubin Urine Urobilinogen Ur Leukocyte Esterase RPR Titer Nonreactive LABS NOTED. - Treatment Hospital Course: Detox Protocol Followed, Detoxed Safely, Responded well, Discharged Condition Good, Rehab Referral Accepted Patient has Accepted a Re[facility] Referral to[facility] ([facility]) . - Medication Discharge Medications: Ambulatory Orders Amlodipine Besylate [Norvasc -] 5 mg PO DAILY 12/10/16 Aspirin [ASA -] 81 mg PO DAILY 12/10/16 Lisinopril/Hydrochlorothiazide [Lisinopril-Hctz 20-25 mg Tab] 1 each PO DAILY - Diagnosis (1) Alcohol dependence with uncomplicated withdrawal Status: Acute (2) Chronic neck and back pain Status: Chronic (3) Cocaine dependence Status: Chronic Qualifiers: Substance use status: uncomplicated Qualified Code(s): F14.20 - Cocaine dependence, uncomplicated (4) HTN (hypertension) Status: Chronic Qualifiers: Hypertension type: essential hypertension Qualified Code(s): I10 - Essential (primary) hypertension (5) Nicotine dependence Status: Chronic Qualifiers: Nicotine product type: cigarettes Substance use status: uncomplicated Qualified Code(s): F17.210 - Nicotine dependence, cigarettes, uncomplicated (6) PPD positive, treated Status: Chronic - AMA Did Patient Leave Against Medical Advice: No
== END 2017-03-14 11:25 | disposition other institution (70) | DRG 774 ==
LOC: YASAS 11:36 → Y3N 18:10
PROVIDERS: ADMIT Internal Medicine; ATTEND Internal Medicine
PROC: HZ2ZZZZ Detoxification Services for Substance Abuse Treatment (ICD-10-PCS; principal; 2017-03-10)
DX: F10.230 Alcohol dependence with withdrawal, uncomplicated (principal); F14.20 Cocaine dependence, uncomplicated; F17.210 Nicotine dependence, cigarettes, uncomplicated; I10 Essential (primary) hypertension; R76.11 Nonspecific reaction to tuberculin skin test without active tuberculosis; M54.9 Dorsalgia, unspecified; M54.2 Cervicalgia; G89.29 Other chronic pain
CPT/HCPCS: 36415; 80053; 81003; 85027; 86593; 93005; 93010

== ENCOUNTER 2017-03-14 11:39 | Inpatient (IN) | payer OTHER ==
--- NOTE | 2017-03-14 11:53 | HP ---
Psychiatrist Admission - Data Date of interview: 03/14/17 Admission source: 3N Identifying data: This is the first [facility] admission for this 57 years old Black male, father of 8 children, unemployed(pending unemplyment benefit), domiciled Medical History: Significant for hypertensionand history of prophylactic treatment for TB. Smokes 5 cigarettes daily Psychiatric History: Denies history of previous psychiatric treatment Physical/Sexual Abuse/Trauma History: Denies history of verbal, physical or sexual abuse as well as DV relationship. No service Additional Comment: Reports multiple previous arrests includingone felony conviction. No parole/probation currently Allergies/Adverse Reactions: Allergies Allergy/AdvReac Type Severity Reaction Status Date / Time No Known Drug Allergies Allergy Verified 03/14/17 11:56 bologna Allergy Intermediate Vomiting Uncoded 03/14/17 11:56 Date of last physical exam: 03/10/17 Concur with the findings of this exam: Yes - Substance Abuse/Tx History Hx Alcohol Use: Yes Hx Substance Use: Yes Substance Use Type: Alcohol (Started drinking alcohol at age 30, consumes one pint of liquor & 2x 6pk of beer daily.Last drank on 03/09/17), Cocaine (Started smoking crack cocaine at age 30, consumes 2 bags daily. Last smoked on 03/09/17) Hx Substance Use Treatment: Yes (4 previous inpt detox and 4 inpt rehab admission ) Mental Status Exam - Mental Status Exam Alert and Oriented to: Time, Place, Person Cognitive Function: Fair Patient Appearance: Well Groomed Mood: Hopeful, Euthymic Patient Behavior: Cooperative Speech Pattern: Clear Voice Loudness: Normal Thought Process: Intact, Goal Oriented Thought Disorder: Not Present Hallucinations: Denies Suicidal Ideation: Denies Homicidal Ideation: Denies Insight/Judgement: Fair Sleep: Well Appetite: Good Muscle strength/Tone: Normal Gait/Station: Normal Psychiatric Findings - Problem List ([place] 1, 2,3) (1) Alcohol dependence Current Visit: Yes Status: Acute (2) Cocaine dependence Current Visit: No Status: Acute Qualifiers: Substance use status: uncomplicated Qualified Code(s): F14.20 - Cocaine dependence, uncomplicated (3) Nicotine dependence Current Visit: No Status: Chronic Qualifiers: Nicotine product type: cigarettes Substance use status: uncomplicated Qualified Code(s): F17.210 - Nicotine dependence, cigarettes, uncomplicated (4) Chronic neck and back pain Current Visit: No Status: Chronic (5) HTN (hypertension) Current Visit: No Status: Chronic Qualifiers: Hypertension type: essential hypertension Qualified Code(s): I10 - Essential (primary) hypertension (6) PPD positive, treated Current Visit: Yes Status: Acute - Initial Treatment Plan Initial Treatment Plan: Monitor progress
[2017-03-14] MEDS ORDERED: P-EPHED 60MG/TRIPROLIDI 2.5MG TABLET PO PRN (12:31)
[2017-03-14] MEDS ORDERED: MAGNESIUM CITRATE 300 ML BOTTLE PO PRN (12:31)
[2017-03-14] MEDS ORDERED: MAG HYDROX/AL HYDROX/SIMETH 30 ML UNIT-DOSE CUP PO PRN (12:31)
[2017-03-14] MEDS ORDERED: IBUPROFEN 400 MG TABLET (FP) PO PRN (12:31)
[2017-03-14] MEDS ORDERED: MAGNESIUM HYDROX 2400MG/30ML ORAL SUSPENSION 30 ML CUP PO PRN (12:31)
[2017-03-14] MEDS ORDERED: MENTHOL/PHENOL 1 EACH UD MM PRN (12:31)
[2017-03-14] MEDS ORDERED: ACETAMINOPHEN 325 MG TABLET (FP) PO PRN (12:31)
[2017-03-14] MEDS ORDERED: LOPERAMIDE HCL 2 MG CAPSULE PO PRN (12:31)
[2017-03-14] MEDS ORDERED: guaiFENesin/D-METHORPHAN HB 10 ML UNIT-DOSE CUPS PO PRN (12:31)
[2017-03-14] MEDS ORDERED: LISINOPRIL 20 MG TABLET (FP) PO ONE (12:58)
--- NOTE | 2017-03-14 13:46 | HP ---
[facility] Rehab Assess/Revision - Admission History Admitted to Rehab from: [facility] Date of Admission to Rehab: 03/14/2017 - Vital signs Vital Signs: Vital Signs Period Temp Pulse Resp BP Sys/Medeiros Pulse Ox Last 24 Hr 98.3 F 106 18 135/82 - Findings Detox History & Physical reviewed: Yes Concur with findings: Yes Comments/Additional Findings: PATIENT'S MEDICAL / MEDICATION HISTORY REVIEWED PRIOR TO DISCHARGE FROM DETOX UNIT. PATIENT WAS DISCHARGED FROM DETOX UNIT TO BE TAKEN OVER TO REHAB UNIT IN STABLE MEDICAL CONDITION. Inpatient Rehab Admission - Initial Determination Are CD services needed?: Yes Free of communicable disease: Yes Not in need of hospitalization: Yes - Rehab Admission Criteria Previous failed treatment: Yes Comorbidities: Yes Patient is meeting Inpatient Rehab admission criteria:: Yes
[2017-03-14] MEDS: THIAMINE HCL 100 MG TABLET (FP) PO SCH (22:09)
[2017-03-15] MEDS ORDERED: NICOTINE 14 MG/24 HOURS TOPICAL PATCH TD SCH (10:00)
[2017-03-15] MEDS: HYDROCHLOROTHIAZIDE 25 MG TABLET (FP) PO SCH (10:08)
[2017-03-15] MEDS: PRENATAL VITAMINS W/ FOLIC ACID TABLET (FP) PO SCH (10:08)
[2017-03-15] MEDS: ASPIRIN 81 MG CHEWABLE TABLETS PO SCH (10:08)
[2017-03-15] MEDS: amLODIPine BESYLATE 5 MG TABLET (FP) PO SCH (10:08)
[2017-03-15] MEDS: THIAMINE HCL 100 MG TABLET (FP) PO SCH (22:15)
[2017-03-16] MEDS: PRENATAL VITAMINS W/ FOLIC ACID TABLET (FP) PO SCH (10:05)
[2017-03-16] MEDS: ASPIRIN 81 MG CHEWABLE TABLETS PO SCH (10:05)
[2017-03-16] MEDS: amLODIPine BESYLATE 5 MG TABLET (FP) PO SCH (10:06)
[2017-03-16] MEDS: METHYL SALICYLATE/MENTHOL OINT 30 GM TUBE TP SCH (10:06)
[2017-03-16] MEDS: HYDROCHLOROTHIAZIDE 25 MG TABLET (FP) PO SCH (10:06)
[2017-03-16] MEDS: THIAMINE HCL 100 MG TABLET (FP) PO SCH (21:59)
[2017-03-17] MEDS: HYDROCHLOROTHIAZIDE 25 MG TABLET (FP) PO SCH (10:20)
[2017-03-17] MEDS: ASPIRIN 81 MG CHEWABLE TABLETS PO SCH (10:20)
[2017-03-17] MEDS: amLODIPine BESYLATE 5 MG TABLET (FP) PO SCH (10:20)
[2017-03-17] MEDS: METHYL SALICYLATE/MENTHOL OINT 30 GM TUBE TP SCH (10:20)
[2017-03-17] MEDS: PRENATAL VITAMINS W/ FOLIC ACID TABLET (FP) PO SCH (10:20)
[2017-03-17] MEDS: LISINOPRIL 10 MG TABLET (FP) PO SCH ×2 (14:11→22:18)
[2017-03-17] MEDS: THIAMINE HCL 100 MG TABLET (FP) PO SCH (22:18)
[2017-03-18] MEDS: HYDROCHLOROTHIAZIDE 25 MG TABLET (FP) PO SCH (09:51)
[2017-03-18] MEDS: LISINOPRIL 10 MG TABLET (FP) PO SCH ×2 (09:51→22:21)
[2017-03-18] MEDS: PRENATAL VITAMINS W/ FOLIC ACID TABLET (FP) PO SCH (09:51)
[2017-03-18] MEDS: METHYL SALICYLATE/MENTHOL OINT 30 GM TUBE TP SCH (09:51)
[2017-03-18] MEDS: amLODIPine BESYLATE 5 MG TABLET (FP) PO SCH (09:51)
[2017-03-18] MEDS: ASPIRIN 81 MG CHEWABLE TABLETS PO SCH (09:51)
[2017-03-18] MEDS: THIAMINE HCL 100 MG TABLET (FP) PO SCH (22:21)
[2017-03-19] MEDS: amLODIPine BESYLATE 5 MG TABLET (FP) PO SCH (09:53)
[2017-03-19] MEDS: LISINOPRIL 10 MG TABLET (FP) PO SCH ×2 (09:53→22:29)
[2017-03-19] MEDS: PRENATAL VITAMINS W/ FOLIC ACID TABLET (FP) PO SCH (09:53)
[2017-03-19] MEDS: HYDROCHLOROTHIAZIDE 25 MG TABLET (FP) PO SCH (09:53)
[2017-03-19] MEDS: ASPIRIN 81 MG CHEWABLE TABLETS PO SCH (09:53)
[2017-03-19] MEDS: METHYL SALICYLATE/MENTHOL OINT 30 GM TUBE TP SCH (09:53)
[2017-03-19] MEDS: THIAMINE HCL 100 MG TABLET (FP) PO SCH (22:29)
[2017-03-20] MEDS: PRENATAL VITAMINS W/ FOLIC ACID TABLET (FP) PO SCH (10:24)
[2017-03-20] MEDS: HYDROCHLOROTHIAZIDE 25 MG TABLET (FP) PO SCH (10:24)
[2017-03-20] MEDS: ASPIRIN 81 MG CHEWABLE TABLETS PO SCH (10:25)
[2017-03-20] MEDS: LISINOPRIL 10 MG TABLET (FP) PO SCH ×2 (10:25→22:16)
[2017-03-20] MEDS: amLODIPine BESYLATE 5 MG TABLET (FP) PO SCH (10:25)
[2017-03-20] MEDS: METHYL SALICYLATE/MENTHOL OINT 30 GM TUBE TP SCH (10:26)
--- NOTE | 2017-03-20 14:49 | PN ---
BHS Progress Note (SOAP) Subjective: rashid wishes to review bloodwork Objective: 03/20/17 14:47 Vital Signs - 24 hr 03/19/17 03/20/17 03/20/17 20:20 00:30 03:30 Temperature Pulse Rate 93 H Respiratory 18 18 Rate Blood Pressure 110/70 03/20/17 03/20/17 07:10 10:00 Temperature 97.2 F L Pulse Rate 85 110 H Respiratory 18 18 Rate Blood Pressure 117/78 144/87 labs reviewed. Assessment: 03/20/17 14:48 elevated glucose bgm x2 advised to folow up with pcp for repeat bloodwork when discharged.
[2017-03-20] MEDS: THIAMINE HCL 100 MG TABLET (FP) PO SCH (22:16)
[2017-03-21] MEDS: amLODIPine BESYLATE 5 MG TABLET (FP) PO SCH (10:07)
[2017-03-21] MEDS: PRENATAL VITAMINS W/ FOLIC ACID TABLET (FP) PO SCH (10:07)
[2017-03-21] MEDS: METHYL SALICYLATE/MENTHOL OINT 30 GM TUBE TP SCH (10:07)
[2017-03-21] MEDS: LISINOPRIL 10 MG TABLET (FP) PO SCH ×2 (10:07→21:51)
[2017-03-21] MEDS: ASPIRIN 81 MG CHEWABLE TABLETS PO SCH (10:07)
[2017-03-21] MEDS: HYDROCHLOROTHIAZIDE 25 MG TABLET (FP) PO SCH (10:07)
[2017-03-21] MEDS: THIAMINE HCL 100 MG TABLET (FP) PO SCH (21:51)
[2017-03-22] MEDS: amLODIPine BESYLATE 5 MG TABLET (FP) PO SCH (10:19)
[2017-03-22] MEDS: PRENATAL VITAMINS W/ FOLIC ACID TABLET (FP) PO SCH (10:19)
[2017-03-22] MEDS: LISINOPRIL 10 MG TABLET (FP) PO SCH ×2 (10:19→22:05)
[2017-03-22] MEDS: HYDROCHLOROTHIAZIDE 25 MG TABLET (FP) PO SCH (10:20)
[2017-03-22] MEDS: ASPIRIN 81 MG CHEWABLE TABLETS PO SCH (10:20)
[2017-03-22] MEDS: METHYL SALICYLATE/MENTHOL OINT 30 GM TUBE TP SCH (10:21)
[2017-03-22] MEDS: THIAMINE HCL 100 MG TABLET (FP) PO SCH (22:05)
[2017-03-23] MEDS: amLODIPine BESYLATE 5 MG TABLET (FP) PO SCH (10:36)
[2017-03-23] MEDS: METHYL SALICYLATE/MENTHOL OINT 30 GM TUBE TP SCH (10:36)
[2017-03-23] MEDS: PRENATAL VITAMINS W/ FOLIC ACID TABLET (FP) PO SCH (10:36)
[2017-03-23] MEDS: ASPIRIN 81 MG CHEWABLE TABLETS PO SCH (10:36)
[2017-03-23] MEDS: HYDROCHLOROTHIAZIDE 25 MG TABLET (FP) PO SCH (10:36)
[2017-03-23] MEDS: LISINOPRIL 10 MG TABLET (FP) PO SCH ×2 (10:36→21:53)
[2017-03-23] MEDS: LIDOCAINE PATCH REMOVAL MC SCH (21:53)
[2017-03-23] MEDS: THIAMINE HCL 100 MG TABLET (FP) PO SCH (21:53)
[2017-03-24] MEDS: PRENATAL VITAMINS W/ FOLIC ACID TABLET (FP) PO SCH (10:16)
[2017-03-24] MEDS: ASPIRIN 81 MG CHEWABLE TABLETS PO SCH (10:16)
[2017-03-24] MEDS: amLODIPine BESYLATE 5 MG TABLET (FP) PO SCH (10:16)
[2017-03-24] MEDS: LIDOCAINE 5% TOPICAL PATCH TP SCH (10:17)
[2017-03-24] MEDS: HYDROCHLOROTHIAZIDE 25 MG TABLET (FP) PO SCH (10:17)
[2017-03-24] MEDS: METHYL SALICYLATE/MENTHOL OINT 30 GM TUBE TP SCH (10:17)
[2017-03-24] MEDS: LISINOPRIL 10 MG TABLET (FP) PO SCH ×2 (10:17→21:53)
[2017-03-24] MEDS: THIAMINE HCL 100 MG TABLET (FP) PO SCH (21:53)
[2017-03-24] MEDS: LIDOCAINE PATCH REMOVAL MC SCH (21:53)
[2017-03-25] MEDS: HYDROCHLOROTHIAZIDE 25 MG TABLET (FP) PO SCH (10:20)
[2017-03-25] MEDS: PRENATAL VITAMINS W/ FOLIC ACID TABLET (FP) PO SCH (10:20)
[2017-03-25] MEDS: LIDOCAINE 5% TOPICAL PATCH TP SCH (10:20)
[2017-03-25] MEDS: METHYL SALICYLATE/MENTHOL OINT 30 GM TUBE TP SCH (10:20)
[2017-03-25] MEDS: LISINOPRIL 10 MG TABLET (FP) PO SCH ×2 (10:20→22:01)
[2017-03-25] MEDS: amLODIPine BESYLATE 5 MG TABLET (FP) PO SCH (10:20)
[2017-03-25] MEDS: ASPIRIN 81 MG CHEWABLE TABLETS PO SCH (10:20)
[2017-03-25] MEDS: THIAMINE HCL 100 MG TABLET (FP) PO SCH (22:01)
[2017-03-25] MEDS: LIDOCAINE PATCH REMOVAL MC SCH (22:01)
[2017-03-26] MEDS: ASPIRIN 81 MG CHEWABLE TABLETS PO SCH (10:15)
[2017-03-26] MEDS: LIDOCAINE 5% TOPICAL PATCH TP SCH (10:15)
[2017-03-26] MEDS: LISINOPRIL 10 MG TABLET (FP) PO SCH ×2 (10:15→22:01)
[2017-03-26] MEDS: PRENATAL VITAMINS W/ FOLIC ACID TABLET (FP) PO SCH (10:15)
[2017-03-26] MEDS: amLODIPine BESYLATE 5 MG TABLET (FP) PO SCH (10:15)
[2017-03-26] MEDS: HYDROCHLOROTHIAZIDE 25 MG TABLET (FP) PO SCH (10:15)
[2017-03-26] MEDS: METHYL SALICYLATE/MENTHOL OINT 30 GM TUBE TP SCH (10:15)
[2017-03-26] MEDS: LIDOCAINE PATCH REMOVAL MC SCH (22:00)
[2017-03-26] MEDS: THIAMINE HCL 100 MG TABLET (FP) PO SCH (22:01)
[2017-03-27] MEDS: LISINOPRIL 10 MG TABLET (FP) PO SCH ×2 (10:06→21:21)
[2017-03-27] MEDS: HYDROCHLOROTHIAZIDE 25 MG TABLET (FP) PO SCH (10:06)
[2017-03-27] MEDS: LIDOCAINE 5% TOPICAL PATCH TP SCH (10:06)
[2017-03-27] MEDS: ASPIRIN 81 MG CHEWABLE TABLETS PO SCH (10:06)
[2017-03-27] MEDS: amLODIPine BESYLATE 5 MG TABLET (FP) PO SCH (10:06)
[2017-03-27] MEDS: PRENATAL VITAMINS W/ FOLIC ACID TABLET (FP) PO SCH (10:06)
[2017-03-27] MEDS: METHYL SALICYLATE/MENTHOL OINT 30 GM TUBE TP SCH (10:06)
--- NOTE | 2017-03-27 16:02 | PN ---
BHS Progress Note Note: Pt c/o of nose bleed a few days ago, no episode today; however ocean spray ordered TID prn for dry mucosal area.
[2017-03-27] MEDS: SODIUM CHLORIDE NASAL SPRAY 44 ML BOTTLE NS PRN (21:20)
[2017-03-27] MEDS: LIDOCAINE PATCH REMOVAL MC SCH (21:21)
[2017-03-27] MEDS: THIAMINE HCL 100 MG TABLET (FP) PO SCH (21:21)
[2017-03-28] MEDS: METHYL SALICYLATE/MENTHOL OINT 30 GM TUBE TP SCH (10:31)
[2017-03-28] MEDS: PRENATAL VITAMINS W/ FOLIC ACID TABLET (FP) PO SCH (10:31)
[2017-03-28] MEDS: HYDROCHLOROTHIAZIDE 25 MG TABLET (FP) PO SCH (10:31)
[2017-03-28] MEDS: ASPIRIN 81 MG CHEWABLE TABLETS PO SCH (10:31)
[2017-03-28] MEDS: LISINOPRIL 10 MG TABLET (FP) PO SCH ×2 (10:31→21:02)
[2017-03-28] MEDS: amLODIPine BESYLATE 5 MG TABLET (FP) PO SCH (10:31)
[2017-03-28] MEDS: LIDOCAINE 5% TOPICAL PATCH TP SCH (10:31)
[2017-03-28] MEDS: SODIUM CHLORIDE NASAL SPRAY 44 ML BOTTLE NS PRN ×2 (10:32→21:03)
[2017-03-28] MEDS: THIAMINE HCL 100 MG TABLET (FP) PO SCH (21:02)
[2017-03-28] MEDS: LIDOCAINE PATCH REMOVAL MC SCH (21:03)
[2017-03-29] MEDS: METHYL SALICYLATE/MENTHOL OINT 30 GM TUBE TP SCH (10:06)
[2017-03-29] MEDS: ASPIRIN 81 MG CHEWABLE TABLETS PO SCH (10:06)
[2017-03-29] MEDS: LISINOPRIL 10 MG TABLET (FP) PO SCH ×2 (10:06→21:07)
[2017-03-29] MEDS: HYDROCHLOROTHIAZIDE 25 MG TABLET (FP) PO SCH (10:06)
[2017-03-29] MEDS: amLODIPine BESYLATE 5 MG TABLET (FP) PO SCH (10:06)
[2017-03-29] MEDS: PRENATAL VITAMINS W/ FOLIC ACID TABLET (FP) PO SCH (10:06)
[2017-03-29] MEDS: SODIUM CHLORIDE NASAL SPRAY 44 ML BOTTLE NS PRN ×2 (10:07→21:06)
[2017-03-29] MEDS: LIDOCAINE 5% TOPICAL PATCH TP SCH (10:07)
[2017-03-29] MEDS: THIAMINE HCL 100 MG TABLET (FP) PO SCH (21:07)
[2017-03-29] MEDS: LIDOCAINE PATCH REMOVAL MC SCH (22:27)
--- NOTE | 2017-03-30 10:01 | PN ---
Psychiatric Progress Note Vital Signs: Vital Signs Period Temp Pulse Resp BP Sys/Medeiros Pulse Ox Last 24 Hr 97.5 F 75-99 18-20 104-119/71-80 Date of Session: 03/30/17 Chief Complaint:: Discharge Note HPI: Patient addressing Alcohol and Cocaine Dependence comorbid with Nicotine Dependence ROS: HTN, PPD+ treated, Chronic neck & back pain Current Medications: Active Medications Generic Name Dose Route Start Last Admin Trade Name Freq PRN Reason Stop Dose Admin Acetaminophen 650 mg 03/14/17 12:31 Tylenol - PO Q4H PRN FEVER Al Hydroxide/Mg Hydroxide 30 ml 03/14/17 12:31 Mylanta Oral Suspension - PO Q6H PRN DYSPEPSIA Amlodipine Besylate 5 mg 03/15/17 10:00 03/29/17 10:06 Norvasc - PO 5 mg DAILY DORA Administration Aspirin 81 mg 03/15/17 10:00 03/29/17 10:06 Asa - PO 81 mg DAILY DORA Administration Eucalyptus/Menthol/Phenol/Sorbitol 1 each 03/14/17 12:31 Cepastat Lozenge - MM Q4H PRN SORE THROAT Guaifenesin 10 ml 03/14/17 12:31 Robitussin Dm - PO Q6H PRN COUGH Hydrochlorothiazide 25 mg 03/15/17 10:00 03/29/17 10:06 Hctz - PO 25 mg DAILY DORA Administration Ibuprofen 400 mg 03/14/17 12:31 Motrin - PO Q6H PRN Pain Level 4-6 Lidocaine 1 patch 03/24/17 10:00 03/29/17 10:07 Lidoderm Patch - TP 1 patch DAILY DORA Administration Lisinopril 10 mg 03/17/17 13:30 03/29/17 21:07 Prinivil PO 10 mg BID DORA Administration Loperamide HCl 4 mg 03/14/17 12:31 Imodium - PO Q6H PRN DIARRHEA Magnesium Citrate 300 ml 03/14/17 12:31 Citroma - PO Q48H PRN CONSTIPATION Magnesium Hydroxide 30 ml 03/14/17 12:31 Milk Of Magnesia - PO DAILY PRN CONSTIPATION Methyl Salicylate 1 applic 03/16/17 10:00 03/29/17 10:06 En-Benítez - TP 1 applic DAILY DORA Administration Miscellaneous 1 each 03/23/17 22:00 03/29/17 22:27 Lidoderm Patch Removal MC 1 each DAILY@2200 DORA Administration Multivit/Folic Acid/Iron 1 tab 03/15/17 10:00 03/29/17 10:06 Vitamins (Sjr) - PO 1 tab DAILY DORA Administration Pseudoephedrine/Triprolidine 1 combo 03/14/17 12:31 03/27/17 11:04 Actifed - PO 1 combo TID PRN Administration NASAL CONGESTION Sodium Chloride 2 spray 03/27/17 17:11 03/29/17 21:06 [place] Nasal [place] - NS 2 spray TID PRN Administration NASAL CONGESTION Thiamine HCl 100 mg 03/14/17 22:00 03/29/17 21:07 Vitamin B1 - PO 100 mg HS DORA Administration Current Side Effect: No Lab tests ordered: Yes Lab tests reviewed: Yes Provider note:: Patient will complete this program on 03/31/17. He has met his treatment goals and will continue to address his issues in outpatient treatment at the [facility] at [address] [place] [address]. He verbalized understanding of the negative consequences of his addiction He is stable for discharge on 03/31/17 Total face to face time:: 35 Mental Status Exam - Mental Status Exam Alert and Oriented to: Time, Place, Person Cognitive Function: Fair Patient Appearance: Well Groomed Mood: Hopeful, Euthymic Affect: Appropriate Patient Behavior: Cooperative Speech Pattern: Clear Voice Loudness: Normal Thought Process: Intact, Goal Oriented Thought Disorder: Not Present Hallucinations: Denies Suicidal Ideation: Denies Homicidal Ideation: Denies Insight/Judgement: Fair Sleep: Well Appetite: Good Muscle strength/Tone: Normal Gait/Station: Normal Psychiatric Treatment Plan - Problem List (1) Alcohol dependence Current Visit: Yes (2) Cocaine dependence Current Visit: No Qualifiers: Substance use status: uncomplicated Qualified Code(s): F14.20 - Cocaine dependence, uncomplicated (3) Nicotine dependence Current Visit: No Qualifiers: Nicotine product type: cigarettes Substance use status: uncomplicated Qualified Code(s): F17.210 - Nicotine dependence, cigarettes, uncomplicated (4) Chronic neck and back pain Current Visit: No (5) HTN (hypertension) Current Visit: No Qualifiers: Hypertension type: essential hypertension Qualified Code(s): I10 - Essential (primary) hypertension (6) PPD positive, treated Current Visit: Yes Initial treatment plan: Patient will be discharged tomorrow and [place] [facility] [place]
[2017-03-30] MEDS: PRENATAL VITAMINS W/ FOLIC ACID TABLET (FP) PO SCH (10:13)
[2017-03-30] MEDS: LISINOPRIL 10 MG TABLET (FP) PO SCH ×2 (10:13→21:29)
[2017-03-30] MEDS: SODIUM CHLORIDE NASAL SPRAY 44 ML BOTTLE NS PRN ×2 (10:13→21:29)
[2017-03-30] MEDS: ASPIRIN 81 MG CHEWABLE TABLETS PO SCH (10:13)
[2017-03-30] MEDS: HYDROCHLOROTHIAZIDE 25 MG TABLET (FP) PO SCH (10:13)
[2017-03-30] MEDS: amLODIPine BESYLATE 5 MG TABLET (FP) PO SCH (10:13)
[2017-03-30] MEDS: LIDOCAINE 5% TOPICAL PATCH TP SCH (10:15)
[2017-03-30] MEDS: METHYL SALICYLATE/MENTHOL OINT 30 GM TUBE TP SCH (10:15)
[2017-03-30] MEDS: THIAMINE HCL 100 MG TABLET (FP) PO SCH (21:28)
[2017-03-30] MEDS: LIDOCAINE PATCH REMOVAL MC SCH (23:48)
[2017-03-31 06:52] VITALS: BP 123/79; PULSE 76; TEMP 97.4
== END 2017-03-31 09:00 | disposition home or self-care (01) | DRG 772 ==
LOC: YASAS 11:39 → Y3W 11:45
PROVIDERS: ADMIT Psychiatry & Neurology Psychiatry; ATTEND Psychiatry & Neurology Psychiatry
PROC: HZ42ZZZ Group Counseling for Substance Abuse Treatment, Cognitive-Behavioral (ICD-10-PCS; principal; 2017-03-14)
DX: F10.20 Alcohol dependence, uncomplicated (principal); F14.20 Cocaine dependence, uncomplicated; F17.210 Nicotine dependence, cigarettes, uncomplicated; F19.282 Other psychoactive substance dependence with psychoactive substance-induced sleep disorder; I10 Essential (primary) hypertension; M54.5 Low back pain; M54.2 Cervicalgia; G89.29 Other chronic pain; R73.9 Hyperglycemia, unspecified
CPT/HCPCS: 82962

== ENCOUNTER 2022-11-16 12:57 | Inpatient (IN) | payer OTHER ==
[2022-11-16 14:56] VITALS: BMI 23.7
[2022-11-16] MEDS ORDERED: MAGNESIUM HYDROX 2400MG/30ML ORAL SUSPENSION 30 ML CUP PO PRN (17:27)
[2022-11-16] MEDS ORDERED: POLYETHYLENE GLYCOL (HEALTHYLAX) 3350 17 GM PACKET PO PRN (17:27)
[2022-11-16] MEDS ORDERED: MAG HYDROX/AL HYDROX/SIMETH 30 ML UNIT-DOSE CUP PO PRN (17:27)
[2022-11-16] MEDS ORDERED: BENZOCAINE/MENTHOL (CHLORASEPTIC ) LOZENGE MM PRN (17:27)
[2022-11-16] MEDS ORDERED: BENZONATATE 200 MG CAPSULE PO PRN (17:27)
[2022-11-16] MEDS ORDERED: guaiFENesin 600 MG TABLET.ER (FP) PO PRN (17:27)
[2022-11-16] MEDS ORDERED: ACETAMINOPHEN 325 MG TABLET (FP) PO PRN (17:27)
[2022-11-16] MEDS ORDERED: COLLOIDAL OATMEAL 1 BAR EACH TP PRN (17:27)
[2022-11-16] MEDS ORDERED: LOPERAMIDE HCL 2 MG CAPSULE PO PRN (17:27)
[2022-11-16] MEDS ORDERED: IBUPROFEN 400 MG TABLET (FP) PO PRN (17:27)
[2022-11-16] MEDS ORDERED: IBUPROFEN 600 MG TABLET (FP) PO PRN (17:27)
[2022-11-16] MEDS ORDERED: P-EPHED 60MG/TRIPROLIDI 2.5MG TABLET PO PRN (17:27)
[2022-11-16] MEDS ORDERED: DORZOLAMIDE HCL OU SCH (22:00)
[2022-11-16] MEDS ORDERED: TIMOLOL MALEAT OU SCH (22:00)
[2022-11-16] MEDS ORDERED: MELATONIN 5 MG TABLETS PO SCH (22:00)
[2022-11-16] MEDS: THIAMINE HCL 100 MG TABLET (FP) PO SCH (23:24)
[2022-11-16] MEDS: TAMSULOSIN HCL 0.4 MG CAP PO SCH (23:24)
[2022-11-16] MEDS: LATANOPROST 0.005% OPHTH SOLN 2.5ML BOTTLE OU SCH (23:25)
[2022-11-16] MEDS: DORZOLAMIDE 2% HCL OPHTHALMIC SOLUTION 10 ML BOTTLE OU SCH (23:25)
[2022-11-16] MEDS: TIMOLOL 0.5% OPHTHALMIC SOL 5 ML BOTTLE OU SCH (23:26)
[2022-11-17] MEDS: TIMOLOL 0.5% OPHTHALMIC SOL 5 ML BOTTLE OU SCH ×2 (09:14→21:15)
[2022-11-17] MEDS: ASPIRIN 81 MG CHEWABLE TABLETS PO SCH (09:14)
[2022-11-17] MEDS: PRENATAL VITAMINS W/ FOLIC ACID TABLET (FP) PO SCH (09:14)
[2022-11-17] MEDS: DORZOLAMIDE 2% HCL OPHTHALMIC SOLUTION 10 ML BOTTLE OU SCH ×3 (10:50→21:17)
[2022-11-17 11:10] LABS: POTASSIUM 3.7 mmol/L (3.5-5.1)
[2022-11-17 11:12] LABS: ALBUMIN 4.2 g/dl (3.4-5.0); BLOOD UREA NITROGEN 18.2 mg/dL (7-18); CALCIUM 9.5 mg/dL (8.5-10.1)
[2022-11-17 11:17] LABS: BILIRUBIN,TOTAL 0.7 mg/dL (0.2-1); TOT PROT 7.8 g/dl (6.4-8.2)
[2022-11-17 11:25] LABS: HEMATOCRIT 41.4 % (35.4-49); HEMOGLOBIN 13.3 GM/dL (11.7-16.9); MCH 26.6 pg (25.7-33.7); MEAN CELL VOLUME 83.2 fl (80-96); MEAN PLT VOLUME 8.6 fl (7.5-11.1); PLATELET COUNT 274 10^3/uL (134-434); RBC 4.98 M/mm3 (4.00-5.60); RDW 14.5 % (11.9-15.9); WHITE BLOOD COUNT 7.9 K/mm3 (4.0-10.0)
[2022-11-17 11:33] LABS: URINE APPEARANCE CLEAR; URINE BILIRUBIN NEGATIVE (NEGATIVE); URINE COLOR YELLOW; URINE GLUCOSE (UA) NEGATIVE (NEGATIVE); URINE KETONE NEGATIVE (NEGATIVE); URINE LEUK ESTERASE NEGATIVE (NEGATIVE); URINE NITRITE NEGATIVE (NEGATIVE); URINE PROTEIN NEGATIVE (NEGATIVE); URINE UROBILINOGEN 0.2 mg/dL (0.2-1.0)
[2022-11-17] MEDS ORDERED: TUBERCULIN PPD 5 TU/0.1ML SYRINGE (IN PATIENT USE ONLY) ID ONE (12:00)
[2022-11-17 13:16] LABS: HIV INTERPRETATION NEGATIVE (NEGATIVE)
[2022-11-17] MEDS ORDERED: PATIENT'S OWN MEDICATION (NON-FORMULARY) (Lisinopril/Hydrochlorothiazide [Lisinopril-Hctz PO SCH (15:45)
[2022-11-17 15:58] LABS: SYPHILIS W/ RPR CONF REACTIVE (NONREACTIVE)
[2022-11-17] MEDS: HYDROCHLOROTHIAZIDE 25 MG TABLET (FP) PO SCH (17:16)
[2022-11-17] MEDS: amLODIPine BESYLATE 5 MG TABLET (FP) PO SCH (17:16)
[2022-11-17] MEDS: LISINOPRIL 20 MG TABLET PO SCH (17:16)
[2022-11-17] MEDS: TAMSULOSIN HCL 0.4 MG CAP PO SCH (21:13)
[2022-11-17] MEDS: LATANOPROST 0.005% OPHTH SOLN 2.5ML BOTTLE OU SCH (21:15)
[2022-11-17] MEDS: THIAMINE HCL 100 MG TABLET (FP) PO SCH (21:17)
[2022-11-17] MEDS ORDERED: SUVOREXANT 10 MG TABLET PO PRN (22:00)
[2022-11-18] MEDS: ASPIRIN 81 MG CHEWABLE TABLETS PO SCH (10:10)
[2022-11-18] MEDS: amLODIPine BESYLATE 5 MG TABLET (FP) PO SCH (10:10)
[2022-11-18] MEDS: HYDROCHLOROTHIAZIDE 25 MG TABLET (FP) PO SCH (10:10)
[2022-11-18] MEDS: PRENATAL VITAMINS W/ FOLIC ACID TABLET (FP) PO SCH (10:10)
[2022-11-18] MEDS: LISINOPRIL 20 MG TABLET PO SCH (10:10)
[2022-11-18] MEDS: TIMOLOL 0.5% OPHTHALMIC SOL 5 ML BOTTLE OU SCH ×2 (10:11→21:11)
[2022-11-18] MEDS: DORZOLAMIDE 2% HCL OPHTHALMIC SOLUTION 10 ML BOTTLE OU SCH ×2 (10:11→21:12)
[2022-11-18] MEDS: TAMSULOSIN HCL 0.4 MG CAP PO SCH (21:10)
[2022-11-18] MEDS: THIAMINE HCL 100 MG TABLET (FP) PO SCH (21:10)
[2022-11-18] MEDS: LATANOPROST 0.005% OPHTH SOLN 2.5ML BOTTLE OU SCH (21:12)
[2022-11-19] MEDS: ASPIRIN 81 MG CHEWABLE TABLETS PO SCH (09:59)
[2022-11-19] MEDS: HYDROCHLOROTHIAZIDE 25 MG TABLET (FP) PO SCH (09:59)
[2022-11-19] MEDS: PRENATAL VITAMINS W/ FOLIC ACID TABLET (FP) PO SCH (10:00)
[2022-11-19] MEDS: TIMOLOL 0.5% OPHTHALMIC SOL 5 ML BOTTLE OU SCH ×2 (10:00→21:21)
[2022-11-19] MEDS: LISINOPRIL 20 MG TABLET PO SCH (10:00)
[2022-11-19] MEDS: amLODIPine BESYLATE 5 MG TABLET (FP) PO SCH (10:00)
[2022-11-19] MEDS: DORZOLAMIDE 2% HCL OPHTHALMIC SOLUTION 10 ML BOTTLE OU SCH ×2 (10:01→21:21)
[2022-11-19] MEDS: METHYL SALICYLATE/MENTHOL OINT 30 GM TUBE TP SCH ×2 (11:00→21:23)
[2022-11-19] MEDS: TAMSULOSIN HCL 0.4 MG CAP PO SCH (21:20)
[2022-11-19] MEDS: LATANOPROST 0.005% OPHTH SOLN 2.5ML BOTTLE OU SCH (21:20)
[2022-11-19] MEDS: THIAMINE HCL 100 MG TABLET (FP) PO SCH (21:20)
[2022-11-20] MEDS: PRENATAL VITAMINS W/ FOLIC ACID TABLET (FP) PO SCH (09:57)
[2022-11-20] MEDS: LISINOPRIL 20 MG TABLET PO SCH (09:57)
[2022-11-20] MEDS: ASPIRIN 81 MG CHEWABLE TABLETS PO SCH (09:57)
[2022-11-20] MEDS: HYDROCHLOROTHIAZIDE 25 MG TABLET (FP) PO SCH (09:57)
[2022-11-20] MEDS: amLODIPine BESYLATE 5 MG TABLET (FP) PO SCH (09:57)
[2022-11-20] MEDS: DORZOLAMIDE 2% HCL OPHTHALMIC SOLUTION 10 ML BOTTLE OU SCH ×2 (09:59→21:22)
[2022-11-20] MEDS: TIMOLOL 0.5% OPHTHALMIC SOL 5 ML BOTTLE OU SCH ×2 (09:59→21:22)
[2022-11-20] MEDS: METHYL SALICYLATE/MENTHOL OINT 30 GM TUBE TP SCH ×2 (09:59→21:22)
[2022-11-20] MEDS: TAMSULOSIN HCL 0.4 MG CAP PO SCH (21:22)
[2022-11-20] MEDS: THIAMINE HCL 100 MG TABLET (FP) PO SCH (21:23)
[2022-11-20] MEDS: LATANOPROST 0.005% OPHTH SOLN 2.5ML BOTTLE OU SCH (21:23)
[2022-11-21] MEDS: ASPIRIN 81 MG CHEWABLE TABLETS PO SCH (09:46)
[2022-11-21] MEDS: amLODIPine BESYLATE 5 MG TABLET (FP) PO SCH (09:47)
[2022-11-21] MEDS: HYDROCHLOROTHIAZIDE 25 MG TABLET (FP) PO SCH (09:47)
[2022-11-21] MEDS: PRENATAL VITAMINS W/ FOLIC ACID TABLET (FP) PO SCH (09:47)
[2022-11-21] MEDS: LISINOPRIL 20 MG TABLET PO SCH (09:47)
[2022-11-21] MEDS: TIMOLOL 0.5% OPHTHALMIC SOL 5 ML BOTTLE OU SCH ×2 (09:48→21:09)
[2022-11-21] MEDS: DORZOLAMIDE 2% HCL OPHTHALMIC SOLUTION 10 ML BOTTLE OU SCH ×2 (09:49→21:09)
[2022-11-21] MEDS: METHYL SALICYLATE/MENTHOL OINT 30 GM TUBE TP SCH ×2 (09:50→21:09)
[2022-11-21] MEDS ORDERED: LIDOCAINE 4% PATCH TP ONE (11:54)
[2022-11-21] MEDS: LATANOPROST 0.005% OPHTH SOLN 2.5ML BOTTLE OU SCH (21:08)
[2022-11-21] MEDS: LIDOCAINE PATCH REMOVAL MC SCH (21:08)
[2022-11-21] MEDS: THIAMINE HCL 100 MG TABLET (FP) PO SCH (21:08)
[2022-11-21] MEDS: TAMSULOSIN HCL 0.4 MG CAP PO SCH (21:09)
[2022-11-22] MEDS: ASPIRIN 81 MG CHEWABLE TABLETS PO SCH (09:24)
[2022-11-22] MEDS: amLODIPine BESYLATE 5 MG TABLET (FP) PO SCH (09:25)
[2022-11-22] MEDS: LISINOPRIL 20 MG TABLET PO SCH (09:25)
[2022-11-22] MEDS: METHYL SALICYLATE/MENTHOL OINT 30 GM TUBE TP SCH ×2 (09:25→21:19)
[2022-11-22] MEDS: HYDROCHLOROTHIAZIDE 25 MG TABLET (FP) PO SCH (09:25)
[2022-11-22] MEDS: PRENATAL VITAMINS W/ FOLIC ACID TABLET (FP) PO SCH (09:25)
[2022-11-22] MEDS: TIMOLOL 0.5% OPHTHALMIC SOL 5 ML BOTTLE OU SCH ×2 (09:26→17:14)
[2022-11-22] MEDS: DORZOLAMIDE 2% HCL OPHTHALMIC SOLUTION 10 ML BOTTLE OU SCH ×2 (09:26→17:14)
[2022-11-22 12:23] LABS: INR 0.97 (0.83-1.09); PROTHROMBIN TIME (PATIENT) 11.2 SEC (9.7-13.0)
[2022-11-22] MEDS: THIAMINE HCL 100 MG TABLET (FP) PO SCH (21:19)
[2022-11-22] MEDS: TAMSULOSIN HCL 0.4 MG CAP PO SCH (21:19)
[2022-11-22] MEDS: BACITRACIN 0.9 GM PACKET TP SCH (21:19)
[2022-11-22] MEDS: LIDOCAINE PATCH REMOVAL MC SCH (21:20)
[2022-11-22] MEDS: LATANOPROST 0.005% OPHTH SOLN 2.5ML BOTTLE OU SCH (21:21)
[2022-11-23] MEDS: HYDROCHLOROTHIAZIDE 25 MG TABLET (FP) PO SCH (09:53)
[2022-11-23] MEDS: LISINOPRIL 20 MG TABLET PO SCH (09:53)
[2022-11-23] MEDS: ASPIRIN 81 MG CHEWABLE TABLETS PO SCH (09:53)
[2022-11-23] MEDS: BACITRACIN 0.9 GM PACKET TP SCH ×2 (09:53→21:38)
[2022-11-23] MEDS: amLODIPine BESYLATE 5 MG TABLET (FP) PO SCH (09:53)
[2022-11-23] MEDS: PRENATAL VITAMINS W/ FOLIC ACID TABLET (FP) PO SCH (09:53)
[2022-11-23] MEDS: METHYL SALICYLATE/MENTHOL OINT 30 GM TUBE TP SCH ×2 (09:55→21:38)
[2022-11-23] MEDS: TIMOLOL 0.5% OPHTHALMIC SOL 5 ML BOTTLE OU SCH ×2 (09:56→16:57)
[2022-11-23] MEDS: DORZOLAMIDE 2% HCL OPHTHALMIC SOLUTION 10 ML BOTTLE OU SCH ×2 (09:57→17:03)
[2022-11-23] MEDS: THIAMINE HCL 100 MG TABLET (FP) PO SCH (21:37)
[2022-11-23] MEDS: TAMSULOSIN HCL 0.4 MG CAP PO SCH (21:37)
[2022-11-23] MEDS: LATANOPROST 0.005% OPHTH SOLN 2.5ML BOTTLE OU SCH (21:38)
[2022-11-23] MEDS: LIDOCAINE PATCH REMOVAL MC SCH (21:38)
[2022-11-24] MEDS: BACITRACIN 0.9 GM PACKET TP SCH ×2 (09:56→21:21)
[2022-11-24] MEDS: METHYL SALICYLATE/MENTHOL OINT 30 GM TUBE TP SCH ×2 (09:56→21:22)
[2022-11-24] MEDS: ASPIRIN 81 MG CHEWABLE TABLETS PO SCH (09:56)
[2022-11-24] MEDS: LISINOPRIL 20 MG TABLET PO SCH (09:57)
[2022-11-24] MEDS: TIMOLOL 0.5% OPHTHALMIC SOL 5 ML BOTTLE OU SCH ×2 (09:57→18:15)
[2022-11-24] MEDS: DORZOLAMIDE 2% HCL OPHTHALMIC SOLUTION 10 ML BOTTLE OU SCH ×2 (09:57→18:15)
[2022-11-24] MEDS: HYDROCHLOROTHIAZIDE 25 MG TABLET (FP) PO SCH (09:57)
[2022-11-24] MEDS: PRENATAL VITAMINS W/ FOLIC ACID TABLET (FP) PO SCH (09:57)
[2022-11-24] MEDS: amLODIPine BESYLATE 5 MG TABLET (FP) PO SCH (09:57)
[2022-11-24] MEDS: TAMSULOSIN HCL 0.4 MG CAP PO SCH (21:21)
[2022-11-24] MEDS: THIAMINE HCL 100 MG TABLET (FP) PO SCH (21:21)
[2022-11-24] MEDS: LATANOPROST 0.005% OPHTH SOLN 2.5ML BOTTLE OU SCH (21:22)
[2022-11-24] MEDS: LIDOCAINE PATCH REMOVAL MC SCH (21:22)
[2022-11-25] MEDS: DORZOLAMIDE 2% HCL OPHTHALMIC SOLUTION 10 ML BOTTLE OU SCH ×2 (10:31→18:12)
[2022-11-25] MEDS: PRENATAL VITAMINS W/ FOLIC ACID TABLET (FP) PO SCH (10:31)
[2022-11-25] MEDS: HYDROCHLOROTHIAZIDE 25 MG TABLET (FP) PO SCH (10:31)
[2022-11-25] MEDS: BACITRACIN 0.9 GM PACKET TP SCH ×2 (10:31→21:16)
[2022-11-25] MEDS: TIMOLOL 0.5% OPHTHALMIC SOL 5 ML BOTTLE OU SCH ×2 (10:31→18:12)
[2022-11-25] MEDS: METHYL SALICYLATE/MENTHOL OINT 30 GM TUBE TP SCH ×2 (10:32→21:16)
[2022-11-25] MEDS: ASPIRIN 81 MG CHEWABLE TABLETS PO SCH (10:32)
[2022-11-25] MEDS: LISINOPRIL 20 MG TABLET PO SCH (10:32)
[2022-11-25] MEDS: amLODIPine BESYLATE 5 MG TABLET (FP) PO SCH (10:32)
[2022-11-25] MEDS: THIAMINE HCL 100 MG TABLET (FP) PO SCH (21:15)
[2022-11-25] MEDS: TAMSULOSIN HCL 0.4 MG CAP PO SCH (21:16)
[2022-11-25] MEDS: LIDOCAINE PATCH REMOVAL MC SCH (21:16)
[2022-11-25] MEDS: LATANOPROST 0.005% OPHTH SOLN 2.5ML BOTTLE OU SCH (21:16)
[2022-11-26] MEDS: TIMOLOL 0.5% OPHTHALMIC SOL 5 ML BOTTLE OU SCH ×2 (09:35→17:18)
[2022-11-26] MEDS: HYDROCHLOROTHIAZIDE 25 MG TABLET (FP) PO SCH (09:35)
[2022-11-26] MEDS: DORZOLAMIDE 2% HCL OPHTHALMIC SOLUTION 10 ML BOTTLE OU SCH ×2 (09:35→17:19)
[2022-11-26] MEDS: amLODIPine BESYLATE 5 MG TABLET (FP) PO SCH (09:35)
[2022-11-26] MEDS: LISINOPRIL 20 MG TABLET PO SCH (09:35)
[2022-11-26] MEDS: BACITRACIN 0.9 GM PACKET TP SCH ×2 (09:35→21:40)
[2022-11-26] MEDS: ASPIRIN 81 MG CHEWABLE TABLETS PO SCH (09:35)
[2022-11-26] MEDS: PRENATAL VITAMINS W/ FOLIC ACID TABLET (FP) PO SCH (09:36)
[2022-11-26] MEDS: METHYL SALICYLATE/MENTHOL OINT 30 GM TUBE TP SCH ×2 (09:37→21:40)
[2022-11-26] MEDS: TAMSULOSIN HCL 0.4 MG CAP PO SCH (21:39)
[2022-11-26] MEDS: THIAMINE HCL 100 MG TABLET (FP) PO SCH (21:39)
[2022-11-26] MEDS: LATANOPROST 0.005% OPHTH SOLN 2.5ML BOTTLE OU SCH (21:40)
[2022-11-26] MEDS: LIDOCAINE PATCH REMOVAL MC SCH (23:08)
[2022-11-27] MEDS: TIMOLOL 0.5% OPHTHALMIC SOL 5 ML BOTTLE OU SCH ×2 (10:09→17:15)
[2022-11-27] MEDS: DORZOLAMIDE 2% HCL OPHTHALMIC SOLUTION 10 ML BOTTLE OU SCH ×2 (10:09→17:14)
[2022-11-27] MEDS: HYDROCHLOROTHIAZIDE 25 MG TABLET (FP) PO SCH (10:10)
[2022-11-27] MEDS: ASPIRIN 81 MG CHEWABLE TABLETS PO SCH (10:10)
[2022-11-27] MEDS: amLODIPine BESYLATE 5 MG TABLET (FP) PO SCH (10:10)
[2022-11-27] MEDS: PRENATAL VITAMINS W/ FOLIC ACID TABLET (FP) PO SCH (10:11)
[2022-11-27] MEDS: BACITRACIN 0.9 GM PACKET TP SCH ×2 (10:11→22:21)
[2022-11-27] MEDS: LISINOPRIL 20 MG TABLET PO SCH (10:11)
[2022-11-27] MEDS: METHYL SALICYLATE/MENTHOL OINT 30 GM TUBE TP SCH ×2 (10:12→22:21)
[2022-11-27] MEDS: THIAMINE HCL 100 MG TABLET (FP) PO SCH (21:30)
[2022-11-27] MEDS: LATANOPROST 0.005% OPHTH SOLN 2.5ML BOTTLE OU SCH (21:30)
[2022-11-27] MEDS: TAMSULOSIN HCL 0.4 MG CAP PO SCH (21:30)
[2022-11-27] MEDS: LIDOCAINE PATCH REMOVAL MC SCH (22:22)
[2022-11-28] MEDS ORDERED: BACITRACIN 0.9 GM PACKET TP PRN (08:14)
[2022-11-28] MEDS: DORZOLAMIDE 2% HCL OPHTHALMIC SOLUTION 10 ML BOTTLE OU SCH ×2 (09:36→18:06)
[2022-11-28] MEDS: ASPIRIN 81 MG CHEWABLE TABLETS PO SCH (09:36)
[2022-11-28] MEDS: TIMOLOL 0.5% OPHTHALMIC SOL 5 ML BOTTLE OU SCH ×2 (09:36→18:05)
[2022-11-28] MEDS: LISINOPRIL 20 MG TABLET PO SCH (09:37)
[2022-11-28] MEDS: PRENATAL VITAMINS W/ FOLIC ACID TABLET (FP) PO SCH (09:37)
[2022-11-28] MEDS: amLODIPine BESYLATE 5 MG TABLET (FP) PO SCH (09:37)
[2022-11-28] MEDS: METHYL SALICYLATE/MENTHOL OINT 30 GM TUBE TP SCH ×2 (09:37→21:23)
[2022-11-28] MEDS: HYDROCHLOROTHIAZIDE 25 MG TABLET (FP) PO SCH (09:37)
[2022-11-28] MEDS: THIAMINE HCL 100 MG TABLET (FP) PO SCH (21:23)
[2022-11-28] MEDS: LATANOPROST 0.005% OPHTH SOLN 2.5ML BOTTLE OU SCH (21:23)
[2022-11-28] MEDS: TAMSULOSIN HCL 0.4 MG CAP PO SCH (21:23)
[2022-11-28] MEDS: LIDOCAINE PATCH REMOVAL MC SCH (21:24)
[2022-11-29] MEDS: ASPIRIN 81 MG CHEWABLE TABLETS PO SCH (09:41)
[2022-11-29] MEDS: PRENATAL VITAMINS W/ FOLIC ACID TABLET (FP) PO SCH (09:42)
[2022-11-29] MEDS: amLODIPine BESYLATE 5 MG TABLET (FP) PO SCH (09:42)
[2022-11-29] MEDS: TIMOLOL 0.5% OPHTHALMIC SOL 5 ML BOTTLE OU SCH ×2 (09:42→17:50)
[2022-11-29] MEDS: DORZOLAMIDE 2% HCL OPHTHALMIC SOLUTION 10 ML BOTTLE OU SCH ×2 (09:42→17:50)
[2022-11-29] MEDS: HYDROCHLOROTHIAZIDE 25 MG TABLET (FP) PO SCH (09:42)
[2022-11-29] MEDS: METHYL SALICYLATE/MENTHOL OINT 30 GM TUBE TP SCH ×2 (09:42→21:24)
[2022-11-29] MEDS: LISINOPRIL 20 MG TABLET PO SCH (09:42)
[2022-11-29] MEDS: LATANOPROST 0.005% OPHTH SOLN 2.5ML BOTTLE OU SCH (21:23)
[2022-11-29] MEDS: THIAMINE HCL 100 MG TABLET (FP) PO SCH (21:24)
[2022-11-29] MEDS: TAMSULOSIN HCL 0.4 MG CAP PO SCH (21:24)
[2022-11-29] MEDS: LIDOCAINE PATCH REMOVAL MC SCH (21:25)
[2022-11-30 06:46] VITALS: TEMP 97.3
[2022-11-30 08:52] VITALS: BP 153/85; PULSE 100; RESP 18
[2022-11-30] MEDS: PRENATAL VITAMINS W/ FOLIC ACID TABLET (FP) PO SCH (09:04)
[2022-11-30] MEDS: LISINOPRIL 20 MG TABLET PO SCH (09:04)
[2022-11-30] MEDS: HYDROCHLOROTHIAZIDE 25 MG TABLET (FP) PO SCH (09:04)
[2022-11-30] MEDS: amLODIPine BESYLATE 5 MG TABLET (FP) PO SCH (09:04)
[2022-11-30] MEDS: ASPIRIN 81 MG CHEWABLE TABLETS PO SCH (09:04)
[2022-11-30] MEDS: METHYL SALICYLATE/MENTHOL OINT 30 GM TUBE TP SCH (09:04)
[2022-11-30] MEDS: TIMOLOL 0.5% OPHTHALMIC SOL 5 ML BOTTLE OU SCH (09:04)
[2022-11-30] MEDS: DORZOLAMIDE 2% HCL OPHTHALMIC SOLUTION 10 ML BOTTLE OU SCH (09:05)
== END 2022-11-30 09:16 | disposition home or self-care (01) | DRG 772 ==
LOC: YASAS 12:57 → Y3E 22:26
PROVIDERS: ADMIT Allergy & Immunology; ATTEND Psychiatry & Neurology Pain Medicine
PROC: HZ42ZZZ Group Counseling for Substance Abuse Treatment, Cognitive-Behavioral (ICD-10-PCS; principal; 2022-11-16)
DX: F10.20 Alcohol dependence, uncomplicated (principal); F14.20 Cocaine dependence, uncomplicated; F17.210 Nicotine dependence, cigarettes, uncomplicated; F19.282 Other psychoactive substance dependence with psychoactive substance-induced sleep disorder; G47.00 Insomnia, unspecified; H40.9 Unspecified glaucoma; I10 Essential (primary) hypertension; M54.2 Cervicalgia; M54.50 Low back pain, unspecified; G89.29 Other chronic pain; Z86.19 Personal history of other infectious and parasitic diseases; Z86.11 Personal history of tuberculosis
CPT/HCPCS: 36415; 71045-TC-FY; 80053; 81003; 82140; 82652; 82962; 83735; 85027; 85610; 86593; 86780; 86803; 87389; 87635; 93005; 93010

== ENCOUNTER 2023-09-14 12:41 | Inpatient (IN) | payer OTHER ==
[2023-09-14 13:25] VITALS: BP 124/79; PULSE 69; RESP 17; TEMP 97.7; BMI 24.4
== END 2023-09-14 17:45 | disposition home or self-care (01) | DRG 861 ==
LOC: YASAS 12:41 → Y6N 15:38
PROVIDERS: ADMIT Allergy & Immunology; ATTEND Surgery
DX: Z53.8 Procedure and treatment not carried out for other reasons (principal)
CPT/HCPCS: 80305; 80307

== ENCOUNTER 2023-09-21 11:18 | Inpatient (IN) | payer OTHER ==
[2023-09-21 12:06] VITALS: BMI 24.8
[2023-09-21] MEDS ORDERED: NICOTINE POLACRILEX 2 MG GUM BUC PRN (12:39)
[2023-09-21] MEDS ORDERED: IBUPROFEN 600 MG TABLET (FP) PO PRN (12:39)
[2023-09-21] MEDS ORDERED: IBUPROFEN 400 MG TABLET (FP) PO PRN (12:39)
[2023-09-21] MEDS ORDERED: LOPERAMIDE HCL 2 MG CAPSULE PO PRN (12:39)
[2023-09-21] MEDS ORDERED: guaiFENesin 600 MG TABLET.ER (FP) PO PRN (12:39)
[2023-09-21] MEDS ORDERED: BENZOCAINE/MENTHOL (CHLORASEPTIC ) LOZENGE MM PRN (12:39)
[2023-09-21] MEDS ORDERED: NALOXONE HCL 0.4 MG/ML VIAL IM PRN (12:39)
[2023-09-21] MEDS ORDERED: MAG HYDROX/AL HYDROX/SIMETH 30 ML UNIT-DOSE CUP PO PRN (12:39)
[2023-09-21] MEDS ORDERED: NALOXONE (NARCAN) HCL 4 MG/0.1 ML SPRAY NS PRN (12:39)
[2023-09-21] MEDS ORDERED: ACETAMINOPHEN 325 MG TABLET (FP) PO PRN (12:39)
[2023-09-21] MEDS ORDERED: BENZONATATE 200 MG CAPSULE PO PRN (12:39)
[2023-09-21] MEDS: THIAMINE 100 MG TABLET PO SCH (21:42)
[2023-09-21] MEDS: MELATONIN 5 MG TABLETS PO SCH (21:42)
[2023-09-22] MEDS ORDERED: PATIENT'S OWN MEDICATION (NON-FORMULARY) (Lisinopril/Hydrochlorothiazide [Lisinopril-Hctz PO SCH (10:00)
[2023-09-22] MEDS: PRENATAL VITAMINS W/ FOLIC ACID TABLET (FP) PO SCH (10:08)
[2023-09-22] MEDS: ASPIRIN 81 MG CHEWABLE TABLETS PO SCH (10:08)
[2023-09-22] MEDS: NICOTINE 14 MG/24 HOURS TOPICAL PATCH TD SCH (10:08)
[2023-09-22] MEDS: LISINOPRIL 20 MG TABLET PO SCH (10:09)
[2023-09-22] MEDS: HYDROCHLOROTHIAZIDE 25 MG TABLET (FP) PO SCH (10:09)
[2023-09-22] MEDS: amLODIPine BESYLATE 5 MG TABLET (FP) PO SCH (10:10)
[2023-09-22 11:46] LABS: HEMATOCRIT 41.8 % (35.4-49); HEMOGLOBIN 14.3 GM/dL (11.7-16.9); MCH 28.1 pg (25.7-33.7); MCHC 34.1 g/dl (32.0-35.9); MEAN CELL VOLUME 82.2 fl (80-96); MEAN PLT VOLUME 9.7 fl (7.5-11.1); PLATELET COUNT 264 10^3/uL (134-434); RBC 5.09 M/mm3 (4.00-5.60); RDW 13.7 % (11.9-15.9); WHITE BLOOD COUNT 8.6 K/mm3 (4.0-10.0)
[2023-09-22 12:08] LABS: POTASSIUM 3.6 mmol/L (3.5-5.1)
[2023-09-22 12:14] LABS: CALCIUM 9.7 mg/dL (8.5-10.1)
[2023-09-22 12:15] LABS: ALBUMIN 3.9 g/dl (3.4-5.0)
[2023-09-22 12:18] LABS: BILIRUBIN,TOTAL 0.4 mg/dL (0.2-1)
[2023-09-22 12:19] LABS: TOT PROT 7.2 g/dl (6.4-8.2)
[2023-09-22] MEDS: DORZOLAMIDE 2% HCL OPHTHALMIC SOLUTION 10 ML BOTTLE OU SCH (15:20)
[2023-09-22] MEDS: LATANOPROST 0.005% OPHTH SOLN 2.5ML BOTTLE OU SCH (21:28)
[2023-09-22] MEDS: TAMSULOSIN HCL 0.4 MG CAP PO SCH (21:28)
[2023-09-23] MEDS: POLYETHYLENE GLYCOL (HEALTHYLAX) 3350 17 GM PACKET PO PRN (10:10)
[2023-09-23 11:47] LABS: PH,URINE 6.5 (5.0-8.0); URINE APPEARANCE CLEAR; URINE BILIRUBIN NEGATIVE (NEGATIVE); URINE COLOR YELLOW; URINE GLUCOSE (UA) NEGATIVE (NEGATIVE); URINE KETONE NEGATIVE (NEGATIVE); URINE LEUK ESTERASE NEGATIVE (NEGATIVE); URINE NITRITE NEGATIVE (NEGATIVE); URINE PROTEIN NEGATIVE (NEGATIVE)
[2023-09-23] MEDS: METHYL SALICYLATE/MENTHOL 30 GM TUBE TP SCH (15:27)
[2023-09-23] MEDS: hydrOXYzine PAMOATE 25 MG CAPSULE (FP) PO PRN (21:38)
[2023-09-25] MEDS: CHOLECALCIFEROL (VIT D3) 1,000 UNIT (25 MCG) TABLET PO SCH (12:33)
[2023-09-25] MEDS: CHOLECALCIFEROL (VIT D3) 5000 UNITS (125 MCG) CAP PO SCH (12:53)
[2023-09-28] MEDS: MAGNESIUM HYDROX 2400MG/30ML ORAL SUSPENSION 30 ML CUP PO PRN (15:23)
[2023-10-03 09:07] VITALS: RESP 18
[2023-10-05 06:42] VITALS: TEMP 97.1
[2023-10-05 09:09] VITALS: BP 130/71; PULSE 100
== END 2023-10-05 09:05 | disposition home or self-care (01) | DRG 772 ==
LOC: YASAS 11:18 → Y3NR 13:22 → Y3W 09-22 11:14
PROVIDERS: ADMIT Allergy & Immunology; ATTEND Psychiatry & Neurology Pain Medicine
PROC: HZ42ZZZ Group Counseling for Substance Abuse Treatment, Cognitive-Behavioral (ICD-10-PCS; principal; 2023-09-21)
DX: F10.20 Alcohol dependence, uncomplicated (principal); F14.20 Cocaine dependence, uncomplicated; F17.210 Nicotine dependence, cigarettes, uncomplicated; I10 Essential (primary) hypertension; N40.0 Benign prostatic hyperplasia without lower urinary tract symptoms; H40.9 Unspecified glaucoma; M54.59 Other low back pain; M54.2 Cervicalgia; G89.29 Other chronic pain; E55.9 Vitamin D deficiency, unspecified; Z86.11 Personal history of tuberculosis
CPT/HCPCS: 36415; 80053; 80305; 80307; 81003; 82306; 85027; 86593; 86780; 87811; 93005; 93010